=== PATIENT | female | born 1965 | race Caucasian/White ===

== ENCOUNTER → 2020-04-04 08:08 | Outpatient (BNVA) | payer OTHER, SELFPAY | PROVIDERS: Family Provider Family Medicine; Visit Provider Specialist | DX: G25.0 Essential tremor (principal) | CPT/HCPCS: 99213 ==

== ENCOUNTER 2020-04-07 19:01 | Emergency (ER) | payer OTHER, SELFPAY ==
[2020-04-07 19:06] VITALS: BP 179/98; PULSE 73; RESP 16; TEMP 36.4; O2SAT 100; BMI 30.9
--- NOTE | 2020-04-07 19:23 | CTR_ITS ---
PROCEDURE INFORMATION: Exam: CT Abdomen And Pelvis With Contrast Exam date and time: 04/07/2020 7:34 PM Age: 55 years old Clinical indication: Abdominal pain; Localized; Right lower quadrant (rlq); Additional info: Rlq pain TECHNIQUE: Imaging protocol: Computed tomography of the abdomen and pelvis with intravenous contrast. Radiation optimization: All CT scans at this facility use at least one of these dose optimization techniques: automated exposure control; mA and/or kV adjustment per patient size (includes targeted exams where dose is matched to clinical indication); or iterative reconstruction. Contrast material: OMNI 300; Contrast volume: 95 ml; Contrast route: INTRAVENOUS (IV); COMPARISON: CT Abdomen/Pelvis Renal [id number] 05/01/2017 4:34 PM RADIATION DOSE METRICS: Total DLP (mGy-cm): 777 FINDINGS: Liver: Normal. No mass. Gallbladder and bile ducts: Several gallstones are present in the gallbladder. No biliary ductal dilatation. Pancreas: Normal. No ductal dilation. Spleen: Normal. No splenomegaly. Adrenals: Normal. No mass. Kidneys and ureters: Tiny renal stones are seen in the right kidney. The left kidney appears normal. A 6 mm renal stone is present in the proximal right ureter. Mild to moderate right hydronephrosis is noted. Stomach and bowel: Unremarkable. No obstruction. No mucosal thickening. Appendix: The appendix is normal. Intraperitoneal space: Unremarkable. No free air. No significant fluid collection. Vasculature: Unremarkable. No abdominal aortic aneurysm. Lymph nodes: Unremarkable. No enlarged lymph nodes. Urinary bladder: Unremarkable as visualized. Reproductive: Unremarkable as visualized. Bones/joints: Unremarkable. No acute fracture. Soft tissues: Unremarkable. CT/CT abdomen pelvis w con* [id number] IMPRESSION: 1. Proximal right ureter 6 mm renal stone and mild to moderate right hydronephrosis. 2. Cholelithiasis. 3. Normal appendix. Radiation Dose CTDIVOL = (mGy): DLP = 777 (mGy-cm)
--- NOTE | 2020-04-07 19:26 | W.ED.ABDPA2 ---
HPI - Abdominal Pain General: Chief Complaint: Abdominal Pain Stated Complaint: abd pain Time Seen by Provider: 04/07/20 19:17 Source: patient Mode of arrival: ambulatory Limitations: no limitations History of Present Illness: MD elicited complaint: abdominal pain Pertinent past history: kidney stones Onset (ago): hour(s) (8) Pain Consistency: constant Location: RLQ Severity: severe Quality: stabbing Radiation: none Exacerbating factors: nothing Relieving factors: nothing Associated Symptoms: Denies anorexia, belching, bloating, change in bowel habits, change in stool character, chills, coffee ground emesis, constipation, GI cramping, diarrhea, dyspepsia, dysuria, excessive flatus, fever(s), heartburn, hematochezia, hematuria, hematemesis, fecal incontinence, loose stools, melena, nausea, poor appetite, syncope, vomiting and other Review of Systems General: Reports: 10 or more systems reviewed and unremarkable except in HPI and below Const: Denies: fever(s) or chills Eyes: Denies: change in vision or blurry vision ENMT: Denies: throat pain, enlarged tonsils, odynophagia, hoarseness, mouth pain or swelling of lips/tongue Card: Denies: syncope Resp: Denies: dyspnea, productive cough or non-productive cough GI: Denies: nausea, vomiting, hematemesis, coffee ground emesis, heartburn, diarrhea, constipation, bloating, GI cramping, belching, excessive flatus, fecal incontinence, change in bowel habits, change in stool character, hematochezia, melena or other : Denies: dysuria or hematuria Musc: Denies: neck pain, back pain or extremity swelling Skin/Breast: Denies: rash, pruritus or erythema Neuro: Denies: headache(s), numbness in extremities or weakness in extremities Endo: Denies: polyuria, polydipsia or tired all the time PFSH ED PFSH: Medical History (Reviewed 04/07/20 @ 19:27 by Erin Marrero MD, [facility] [place]) Essential tremor Family History (Reviewed 04/07/20 @ 19:27 by Erin Marrero MD, [facility] [place]) Grandfather No problems noted. Mother Hypertension Brother Morquio A syndrome Father Essential tremor Other Cancer Social History (Reviewed 04/07/20 @ 19:27 by Erin Marrero MD, [facility] [place]) Smoking and tobacco status: never smoked History of recent travel: No Physical Exam Const: COMMON NORMALS: average body habitus, patient oriented x3, no limitations, healthy appearing, alert and well nourished GENERAL APPEARANCE: in distress HENMT: COMMON NORMALS: normocephalic, atraumatic and moist oral mucous membranes HEAD & SCALP: normocephalic and atraumatic Neck/C-Spine: COMMON NORMALS: full ROM, supple, no meningeal signs, no JVD and No carotid bruits Resp: COMMON NORMALS: normal respiratory effort, No retractions, No use of accessory muscles, clear to auscultation bilaterally and percussion normal AUSCULTATION: clear to auscultation bilaterally PERCUSSION: percussion normal Cardio: COMMON NORMALS: no JVD, regular rate, regular rhythm, S1 normal heart sound present, S2 normal heart sound present, No gallops present (Cardio), No clicks present (Cardio), No murmurs present (Cardio), No rub (Cardio) and Peripheral pulses 2+ throughout RATE: regular rate RHYTHM: regular rhythm HEART SOUNDS: S1 normal heart sound present and S2 normal heart sound present PERIPHERAL PULSES: Peripheral pulses 2+ throughout GI: COMMON NORMALS: Normal to inspection, nondistended, normoactive bowel sounds present, Soft to palpation, non-tender, No hepatosplenomegaly present, no masses and no bruits PALPATION: Yes Soft to palpation and Yes No hepatosplenomegaly present : BLADDER/KIDNEY EXAM: Yes CVA tenderness on the right Back/Pelvis: GENERAL BACK: Yes CVA tenderness Extremity: COMMON NORMALS: normal to inspection, full ROM, capillary refill normal, no calf tenderness and no pedal edema Neuro: COMMON NORMALS: patient oriented x3 SENSORIUM/ORIENTATION: Yes alert MENINGEAL SIGNS: Yes no meningeal signs Skin: COMMON NORMALS: no rashes or lesions noted, no wounds, turgor normal, no jaundice, no petechiae and no mottling GENERAL SKIN EXAM: no rashes or lesions noted and turgor normal Course Reevaluation(s): Reevaluation #1: Discussed her lab and imaging findings with her. CT scan findings shows a 6 mm ureteric calculus on the right with mild to moderate hydronephrosis. UA also shows a UTI, and will benefit from antibiotics. We will also talk to the urologist since she has an obstructing stone with a UTI. Pain is still well controlled. Time: 20:50 Consultations: Consultation #1: See Dr. Rosa, urologist. Since pain is well controlled and she has a UTI send her home with a prescription for Antibiotic and pain medicine. She should call his office in the morning for further evaluation and to see if any intervention needs to be done. Time: 21:05 Vital Signs: Vital signs: Vital Signs Temperature 97.5 F L 04/07/20 19:06 Pulse Rate 73 04/07/20 19:06 Respiratory Rate 18 04/07/20 20:22 Blood Pressure 179/98 04/07/20 19:06 Pulse Oximetry 100 04/07/20 19:06 MDM - Abdominal Pain MDM Narrative: Medical decision making narrative: 55-year-old female patient who presents with a 6 mm right ureteric calculus with mild to moderate hydronephrosis. She also has a urinary tract infection. Pain was well controlled in the emergency department with intravenous pain medications. She is discharged home with oral pain medicine and oral antibiotics. She was given a dose of antibiotic in the emergency department. She is to call the office of the urologist, Dr. Rosa, who is she is seen in the past in the morning for further evaluation and management. Medical Records: Attestation: I reviewed the patient's medical records. Lab Data: Attestation: I reviewed the patient's lab results. Labs: Lab Results 04/07/20 04/07/20 04/07/20 Range/Units 19:30 19:30 19:30 WBC 9.1 (4.0-10.0) 10^3/ uL RBC 4.30 (4.1-5.3) 10^6/u L Hgb 14.0 (11.5-15.3) g/dL Hct 41.3 (37.0-47.0) % MCV 96.0 (81-99) fL MCH 32.6 (28.0-34.0) pg MCHC 33.9 (30.0-36.0) g/dL RDW 13.4 (12.1-15.1) % Plt Count 264 (130-400) 10^3/c mm MPV 11.1 H (7.4-10.4) fL Neut % (Auto) 71.0 % Lymph % (Auto) 19.0 % Prairie % (Auto) 6.9 % Eos % (Auto) 1.9 % Baso % (Auto) 1.0 % Neut # (Auto) 6.47 (1.8-7.7) 10^3/u L Lymph # (Auto) 1.7 (0.8-4.8) 10^3/u L Prairie # (Auto) 0.6 (0.2-0.9) 10^3/u L Eos # (Auto) 0.2 (0.0-0.8) 10^3/u L Baso # (Auto) 0.1 (0.0-0.1) 10^3/u L Nucleated RBC % (a uto) 0 % Nucleated RBCs # 0.0 /100WBC Sodium 136 (136-145) mmol/L Potassium 3.9 (3.5-5.1) mmol/L Chloride 102 (98-107) mmol/L Carbon Dioxide 20 L (22-29) mmol/L Anion Gap 17.9 (5-19) BUN 15 (6-20) mg/dL Creatinine 1.0 H (0.5-0.9) mg/dL GFR Calculation 57.8 L (90-130) mL/min Glucose 149 H (65-115) mg/dL Calculated Osmolal ity 286 (285-295) mOsm/k g Calcium 9.3 (8.5-10.5) mg/dL Total Bilirubin 0.4 (0.15-1.2) mg/dL AST 19 (0-32) U/L ALT 13 (0-33) U/L Alkaline Phosphata se 60 (35-105) IU/L Total Protein 7.5 (6.6-8.7) g/dL Albumin 4.5 (3.5-5.2) g/dL Globulin 3.0 (1.3-4.6) g/dL Lipase 39 (13-60) U/L HCG, Qual Negative (Negative) Urine Color (Yellow) Urine Appearance (CLEAR) Urine pH (5-7) Ur Specific Gravit y (1.005-1.030) Urine Protein (Negative) Urine Glucose (UA) (Normal) Urine Ketones (Negative) Urine Blood (Negative) Urine Nitrate (Negative) Urine Bilirubin (Negative) Urine Urobilinogen (Negative) mg/dL Ur Leukocyte Cathy ase (Negative) Urine RBC (0-2) /hpf Urine WBC (0-5) /hpf Ur Squamous Epith Cells (0-5) /hpf Amorphous Sediment Urine Bacteria (NONE) /hpf 04/07/20 Range/Units 19:30 WBC (4.0-10.0) 10^3/ uL RBC (4.1-5.3) 10^6/u L Hgb (11.5-15.3) g/dL Hct (37.0-47.0) % MCV (81-99) fL MCH (28.0-34.0) pg MCHC (30.0-36.0) g/dL RDW (12.1-15.1) % Plt Count (130-400) 10^3/c mm MPV (7.4-10.4) fL Neut % (Auto) % Lymph % (Auto) % Prairie % (Auto) % Eos % (Auto) % Baso % (Auto) % Neut # (Auto) (1.8-7.7) 10^3/u L Lymph # (Auto) (0.8-4.8) 10^3/u L Prairie # (Auto) (0.2-0.9) 10^3/u L Eos # (Auto) (0.0-0.8) 10^3/u L Baso # (Auto) (0.0-0.1) 10^3/u L Nucleated RBC % (a uto) % Nucleated RBCs # /100WBC Sodium (136-145) mmol/L Potassium (3.5-5.1) mmol/L Chloride (98-107) mmol/L Carbon Dioxide (22-29) mmol/L Anion Gap (5-19) BUN (6-20) mg/dL Creatinine (0.5-0.9) mg/dL GFR Calculation (90-130) mL/min Glucose (65-115) mg/dL Calculated Osmolal ity (285-295) mOsm/k g Calcium (8.5-10.5) mg/dL Total Bilirubin (0.15-1.2) mg/dL AST (0-32) U/L ALT (0-33) U/L Alkaline Phosphata se (35-105) IU/L Total Protein (6.6-8.7) g/dL Albumin (3.5-5.2) g/dL Globulin (1.3-4.6) g/dL Lipase (13-60) U/L HCG, Qual (Negative) Urine Color Yellow (Yellow) Urine Appearance Clear (CLEAR) Urine pH 5 (5-7) Ur Specific Gravit y 1.025 (1.005-1.030) Urine Protein Neg (Negative) Urine Glucose (UA) Norm (Normal) Urine Ketones 1+ H (Negative) Urine Blood Neg (Negative) Urine Nitrate Negative (Negative) Urine Bilirubin 1+ H (Negative) Urine Urobilinogen Norm (Negative) mg/dL Ur Leukocyte Cathy ase 1+ H (Negative) Urine RBC 0-4 H (0-2) /hpf Urine WBC 10-15 H (0-5) /hpf Ur Squamous Epith Cells 0-4 H (0-5) /hpf Amorphous Sediment Not Reportable Urine Bacteria 1+ H (NONE) /hpf Imaging Data ^: CT Abd/Pel: Radiologist's impression: [place] [address] CT Scan Report Signed Patient: Akila Gooden #: [id number] : 1965Acct#:[id number] Age/Sex: 55 / FADM Date: 04/07/20 Loc: ERRoom/Bed: Attending Dr: Ordering Provider/Ordering MD: Erin Marrero MD, [facility] [place] Date of Service: 04/07/20 Procedure(s): CT abdomen pelvis w con* [id number] Accession Number(s): [id number] Report Number: [id number] PROCEDURE INFORMATION: Exam: CT Abdomen And Pelvis With Contrast Exam date and time: 04/07/2020 7:34 PM Age: 55 years old Clinical indication: Abdominal pain; Localized; Right lower quadrant (rlq); Additional info: Rlq pain TECHNIQUE: Imaging protocol: Computed tomography of the abdomen and pelvis with intravenous contrast. Radiation optimization: All CT scans at this facility use at least one of these dose optimization techniques: automated exposure control; mA and/or kV adjustment per patient size (includes targeted exams where dose is matched to clinical indication); or iterative reconstruction. Contrast material: OMNI 300; Contrast volume: 95 ml; Contrast route: INTRAVENOUS (IV); COMPARISON: CT Abdomen/Pelvis Renal [id number] 05/01/2017 4:34 PM RADIATION DOSE METRICS: Total DLP (mGy-cm): 777 FINDINGS: Liver: Normal. No mass. Gallbladder and bile ducts: Several gallstones are present in the gallbladder. No biliary ductal dilatation. Pancreas: Normal. No ductal dilation. Spleen: Normal. No splenomegaly. Adrenals: Normal. No mass. Kidneys and ureters: Tiny renal stones are seen in the right kidney. The left kidney appears normal. A 6 mm renal stone is present in the proximal right ureter. Mild to moderate right hydronephrosis is noted. Stomach and bowel: Unremarkable. No obstruction. No mucosal thickening. Appendix: The appendix is normal. Intraperitoneal space: Unremarkable. No free air. No significant fluid collection. Vasculature: Unremarkable. No abdominal aortic aneurysm. Lymph nodes: Unremarkable. No enlarged lymph nodes. Urinary bladder: Unremarkable as visualized. Reproductive: Unremarkable as visualized. Bones/joints: Unremarkable. No acute fracture. Soft tissues: Unremarkable. CT/CT abdomen pelvis w con* [id number] IMPRESSION: 1. Proximal right ureter 6 mm renal stone and mild to moderate right hydronephrosis. 2. Cholelithiasis. 3. Normal appendix. Radiation Dose CTDIVOL = (mGy): DLP = 777 (mGy-cm) Dictated By:Fran Ware MD Signed By:Fran Ware MDSigned Date/Time:04/07/202026 DD/ 24 Discharge Plan Discharge Patient Disposition: Home Clinical Impression: Calculus of proximal right ureter Urinary tract infection Qualifiers: Urinary tract infection type: acute pyelonephritis Qualified Code(s): N10 - Acute pyelonephritis Condition: Stable Prescriptions: New levofloxacin 500 mg tablet 500 mg PO DAILY 10 Days Qty: 10 RF: 0 Mineral 5-325 mg tablet 1 tab PO Q8H PRN (Reason: Kidney stone) Qty: 20 RF: 0 Flomax 0.4 mg capsule 0.4 mg PO DAILY Qty: 30 RF: 0 Continued esomeprazole magnesium [Nexium 24HR] 20 mg capsule,delayed release(DR/EC) 20 mg PO DAILY RF: 0 medroxyprogesterone 150 mg/mL suspension See Rx Instructions IM .COMPLEX RF: 0 diphenhydramine-acetaminophen [Tylenol PM Extra Strength] 25-500 mg tablet 1 tab PO Q8H PRN (Reason: Pain) RF: 0 propranolol 60 mg tablet 60 mg PO TID Qty: 90 RF: 11 cetirizine-pseudoephedrine 5-120 mg Tablet Extended Release 12 Hr 1 tab PO BID RF: 0 primidone 50 mg tablet 100 mg PO BID RF: 0 Discharge Orders: Discharge Order (Routine); Ordered 04/07/20 Ordered By: Erin Marrero Referrals: Lara Lloyd MD [Primary Care Provider] - 1-3 days David Rosa MD [Physician] - 04/08/20 Discharge Diet: Usual diet Discharge Activity: Increase activity as tolerated Patient Instructions: Kidney Stones (ED), Urinary Tract Infection - Women Activity Restrictions/Additional Instructions: Return for any new or worsening symptoms. Take the medications as prescribed. Drink plenty of fluids to keep well-hydrated. Call the office of Dr. Rosa tomorrow morning for further evaluation and follow-up. Coding Level of Care Code ED Final Tester for Chg Fwd Exam Comprehensive
[2020-04-07 19:34] LABS: Basophils # 0.1 10^3/uL (0.0-0.1); Eosinophils # 0.2 10^3/uL (0.0-0.8); Eosinophils % 1.9 %; Hematocrit 41.3 % (37.0-47.0); Lymphocytes # 1.7 10^3/uL (0.8-4.8); Mean Corpuscular HGB Conc 33.9 g/dL (30.0-36.0); Mean Corpuscular Hemoglobin 32.6 pg (28.0-34.0); Mean Platelet Volume 11.1 fL (7.4-10.4); Monocytes # 0.6 10^3/uL (0.2-0.9); Monocytes % 6.9 %; Neutrophils # 6.47 10^3/uL (1.8-7.7); Nucleated Red Blood Cells % 0 %; Platelet Count 264 10^3/cmm (130-400); Red Cell Distribution Width 13.4 % (12.1-15.1); White Blood Count 9.1 10^3/uL (4.0-10.0)
[2020-04-07 19:38] VITALS: RESP 20
[2020-04-07] MEDS: morphine 4 mg/mL SDV 1 mL IVP ×2 (19:38→20:22)
[2020-04-07] MEDS: ondansetron 2 mg/ML SDV 2 mL 4 MG IVP (19:39)
[2020-04-07 19:52] LABS: HCG, Serum Qual Negative (Negative)
[2020-04-07] MEDS: iohexol 300 mg/mL 100 mL Btl IV (19:55)
[2020-04-07 19:59] LABS: Alanine Aminotransferase 13 U/L (0-33); Albumin Level 4.5 g/dL (3.5-5.2); Alkaline Phosphatase 60 IU/L (35-105); Anion Gap 17.9 (5-19); Aspartate Amino Transferase 19 U/L (0-32); Blood Urea Nitrogen 15 mg/dL (6-20); Calcium 9.3 mg/dL (8.5-10.5); Carbon Dioxide 20 mmol/L (22-29); Chloride 102 mmol/L (98-107); Glomerular Filtration Rate 57.8 mL/min (90-130); Glucose 149 mg/dL (65-115); Lipase 39 U/L (13-60); Osmolality Calculated 286 mOsm/kg (285-295); Potassium 3.9 mmol/L (3.5-5.1); Sodium 136 mmol/L (136-145); Total Bilirubin 0.4 mg/dL (0.15-1.2); Total Protein 7.5 g/dL (6.6-8.7)
[2020-04-07 20:16] LABS: Add Urine Microscopic? YES; Bilirubin Urine 1+ (Negative); Blood Urine Neg (Negative); Glucose Urine UA Norm (Normal); Ketones Urine 1+ (Negative); Leukocyte Esterase Urine 1+ (Negative); Nitrate Urine Negative (Negative); Protein Urine Neg (Negative); Specific Gravity, Urine 1.025 (1.005-1.030); Urine Appearance Clear (CLEAR); Urine Color Yellow (Yellow); Urobilinogen Urine Norm (Negative); pH Urine 5 (5-7)
[2020-04-07 20:22] VITALS: RESP 18
[2020-04-07] MEDS: metoclopramide 5 mg/mL SDV 2 mL 10 MG IVP (20:27)
[2020-04-07 20:31] LABS: Bacteria Urine 1+ /hpf; RBC Urine 0-4 /hpf (0-2); Squamous Epithelial Cell Urine 0-4 /hpf (0-5)
[2020-04-07] MEDS: levofloxacin-dextrose 5 % 500 MG/100 ML PREMIX 100 MG IV (21:29)
[2020-04-07] MEDS: HYDROcodone-acetaminophen 5-325 mg Tablet 4 TAB PO (21:44)
[2020-04-07] MEDS: tamsulosin 0.4 mg Capsule PO (21:45)
[2020-04-07] MEDS: promethazine 25 mg Tablet PO (21:45)
[2020-04-07 22:26] VITALS: BP 144/100; PULSE 85; RESP 18; O2SAT 98
== END 2020-04-07 22:28 | disposition home or self-care (01) ==
PROVIDERS: Emergency Medicine; Emergency Provider Family Medicine; PCP Family Medicine
DX: N20.1 Calculus of ureter (principal)
CPT/HCPCS: 12345; 74177; 80053; 81001; 83690; 84703; 85025; 96365; 96375; 96376; 99282; 99284; J1956; J2270; J2405; J2765; Q0169; Q9967

== ENCOUNTER 2020-04-08 08:43 | Outpatient (CLI) | payer OTHER, SELFPAY ==
--- NOTE | 2020-04-08 09:00 | XR_ITS ---
WS: [id number] KUB, 04/08/2020 Clinical Data: STONE Comparison: KUB, 12/15/2018. Findings: There is contrast material within the right kidney which shows renal pelvic dilatation in proximal r ight ureteral dilatation down to the level of the right fifth transverse process. There is a obstruct ing stone at this level. There is minimal contrast in the left kidney and left ureter. Bladder contra st is seen. There is vicarious contrast in the gallbladder with 2 gallstones. XR/XR KUB [id number] Impression: 1. Obstructing right mid ureteral calculus. 2. Gallstones.
== END 2020-04-08 08:44 | disposition home or self-care (01) ==
LOC: RAD 08:46
PROVIDERS: PCP Family Medicine; Visit Provider Urology
DX: N20.1 Calculus of ureter (principal); K80.80 Other cholelithiasis without obstruction
CPT/HCPCS: 74018; 87635

== ENCOUNTER 2020-04-13 06:46 | Outpatient (CLI) | payer OTHER, SELFPAY ==
--- NOTE | 2020-04-13 07:15 | XRR_ITS ---
PROCEDURE INFORMATION: Exam: XR Abdomen, 1 View Exam date and time: 04/13/2020 7:10 AM Age: 55 years old Clinical indication: Pain and condition or disease; Other: Stones; Abdominal pain; Generalized; Patient HX: Rlq pain TECHNIQUE: Imaging protocol: XR of the abdomen. Views: Frontal supine view of the abdomen. 1 View. COMPARISON: CR XR KUB [id number] 04/08/2020 8:54 AM FINDINGS: Gastrointestinal tract: Nor prominent stool and mild dilatation of the splenic flexure. Bones/joints: Mild degenerative change . Other findings: Punctate calcifications overlying the right paraspinous region and pelvis, in the setting of documented urolithiasis. Cholelithiasis. XR/XR KUB [id number] IMPRESSION: 1. Punctate calcifications overlying the right paraspinous region and pelvis, in the setting of documented urolithiasis. 2. Cholelithiasis.
== END 2020-04-13 06:47 | disposition home or self-care (01) ==
LOC: RAD 06:54
PROVIDERS: PCP Family Medicine; Visit Provider Urology
DX: N20.1 Calculus of ureter (principal); K80.20 Calculus of gallbladder without cholecystitis without obstruction
CPT/HCPCS: 74018; 81001

== ENCOUNTER 2020-04-14 10:25 | Day surgery (SDC) | payer OTHER, SELFPAY ==
[2020-04-13 13:00] VITALS: BMI 30.9
[2020-04-14] VITALS (9 sets, daily range): BP systolic 115–160; BP diastolic 63–107; PULSE 55–78; RESP 15–19; TEMP 36.1–36.2; O2SAT 94–100
--- NOTE | 2020-04-14 | SCC_ITS ---
Procedure Done: 1. Cystoscopy, RIGHT ureteroscopy, laser lithotripsy, stent 2. Right retrograde ureteropyelogram 61.8 seconds of fluoroscopic guidance, for a cumulative dose of 12.41 mGy, was provided to Dr. Rosa by the radiology department. C-arm images of the abdomen were saved for the patient's permanent record. [facility]
--- NOTE | 2020-04-14 10:34 | SC_ITS ---
WS: [id number] C-arm fluoroscopy view of the right abdomen, 04/14/2020 Clinical Data: Right ureteroscopy Comparison: KUB, 04/13/2020. Findings: A right ureteral stent has been inserted in curls in the right renal pelvis. There are 2 stones seen in the region of the gallbladder. Right renal pelves are modestly dilated. SC/C-arm FL for Urology Impression: Satisfactory insertion of right ureteral stent.
[2020-04-14] MEDS: sodium chloride 0.9% 1,000 ML 30 ML IV (11:16)
--- NOTE | 2020-04-14 11:18 | ANES.PREANE2 ---
Pre-Anesthetic Assessment Pre-Anesthetic Assessment: Height/Weight: Height 1.57 m Weight 76.657 kg Temp Pulse Resp BP Pulse Ox 97.2 F L 75 18 148/107 98 04/14/20 11:06 04/14/20 11:06 04/14/20 11:06 04/14/20 11:06 04/14/20 11:06 Preop Diagnosis: Refractory right mid ureteral stone Proposed Procedure: Operation Date: 04/14/20 12:00 Proposed Procedures p Cystoscopy 20607 40827 N20.1(Not Applicable) - David Rosa MD s Retrograde Pyelogram(Right) - MD ladan Earl Ureteroscopy(Right) - MD ladan Earl Laser Lithotripsy(Not Applicable) - David Rosa MD s Ureteral Stent Placement(Not Applicable) - David Rosa MD Familial anesthetic complications: ponv with a pilonidal cyst surgery Was Beta Mis taken within 24 hours: N/A Last intake: Intake Last Liquid Date 04/13/20 Last Liquid Time 19:00 Last Solid Date 04/13/20 Last Solid Time 10:00 Social: Social History: No alcohol and No tobacco Exam: Pre-Anes Outpt Exam: alert, oriented x 3, clear to auscultation bilaterally and regular rate & rhythm Airway: Cervical ROM: WNL MP: 2 Dentition: Full GI: GI: GERD Neuropsych: Comments: essential tremor - takes propanolol and primodine Anesthetic Plan: ASA status: 1 Anesthesia: General Risk of > 500 ml blood loss (7ml/kg in children): No Meds/Allergies Current Medications: Current Medications Generic Name Dose Route Start Last Admin Trade Name Freq PRN Reason Stop Dose Admin Sodium Chloride 1,000 mls @ 30 ml s/hr 04/14/20 10:45 04/14/20 11:16 Sodium Chloride 0.9% IV 04/15/20 10:44 30 mls/hr .Q24H DENISE Administration PFSH Anesthesia PFSH: Medical History Essential tremor History of pilonidal cyst Surgical History History of tonsillectomy Family History Grandfather No problems noted. Mother Hypertension Brother Morquio A syndrome Father Essential tremor Other Cancer Social History Smoking and tobacco status: never smoked Alcohol intake: never Adopted: No Caregiver/support person: No Lives independently: No Household members: spouse Marital status: Current occupational status: employed History of recent travel: No Data Anesthesia Cardiac Studies: No Data to Display
--- NOTE | 2020-04-14 12:10 | P.HPUD_ITS ---
Surgery/Procedure H&P Update DATE OF PROCEDURE: April 14, 2020 DATE H&P PERFORMED: 04/14/20 H&P UPDATE INFORMATION: I have reviewed H&P completed within last 30 days, I have examined patient prior to procedure, No changes to prior documentation and H&P is in [facility] EMR on date indicated CHANGES TO PREVIOUS DOCUMENTATION: No change from previous visit in clinic. Not passed the stone. Still having pain. PREOP DIAGNOSIS: Refractory right mid ureteral stone PLANNED PROCEDURE: Operation Date: 04/14/20 12:00 Proposed Procedures p Cystoscopy 28264 07471 N20.1(Not Applicable) - David Rosa MD s Retrograde Pyelogram(Right) - MD ladan Earl Ureteroscopy(Right) - MD ladan Earl Laser Lithotripsy(Not Applicable) - MD ladan Earl Ureteral Stent Placement(Not Applicable) - David Rosa MD
--- NOTE | 2020-04-14 12:13 | P.OP_ITS ---
Operative Report Date of procedure: April 14, 2020 Pre-op Diagnosis: Refractory right mid ureteral stone Post-op diagnosis: same Procedure Done: 1. Cystoscopy, RIGHT ureteroscopy, laser lithotripsy, stent 2. Right retrograde ureteropyelogram Implants: Right ureteral stent Pathology: Stone fragments Surgeon: Moe Anesthesia: General Estimated blood loss: Minimal Urine output: Not measured Complications: None Findings: Stone in the expected position. Completely fragmented with laser lithotripsy Significant josue-stone ureteral edema Required postoperative stenting. Condition: stable Disposition: PACU Brief History: Akila is a very pleasant 55-year-old white female recently diagnosed with obstructing right mid ureteral stone. Severe pain at the time but was well-controlled with oral narcotics and she elected initially a conservative trial in hopes of spontaneous passage. The stone failed to pass and she continued to have significant symptoms and ultimately chose to proceed with treatment. Based on the josue-stone ureteral edema it was decided to proceed with endoscopy as opposed to ESWL. Procedure: After routine preoperative evaluation examination and obtaining of informed consent she was taken to the operating suite on 04/14/2020 where general anesthesia was administered without difficulty after appropriate timeout was performed, SCDs confirmed to be functioning, preoperative antibiotics administered, beta-jimmy protocol confirmed. Prepped and draped in usual sterile fashion in dorsolithotomy position pain careful attention to avoiding pressure points. 21 [place] Islander cystoscope with 30 degree lens introduced into urethral meatus and advanced into the bladder under videoscopy. Bladder was systematically e xamined. No stone was identified. Cone-tipped catheter intubate into the right ureteral orifice for right retrograde ureteropyelogram: Contrast was injected and showed a normal ureter course and caliber up until the filling defect consistent with the stone seen on previous imaging. Contrast did flow proximally and demonstrated a dilated ureter. There were 2 areas in the ureter distal to the stone that showed narrowing. Did not appear to be a filling defect but rather just intrinsic narrowing of the ureter. No significant dilation of the ureter proximal to that point only above the stone. Flexible tip guidewire was then passed up the right ureter. But did not easily pass the stone. An open-ended ureteral catheter was then placed over the guidewire to just below the level of the stone and this facilitated passage of the guidewire passed the stone. A second guidewire this time a zip wire was utilized to use as a working wire but could not be easily passed beyond the stone. The distal ureter was then dilated with a 15 [place] Islander 4 cm balloon and the more distal of the 2 narrowed areas required about 14 crystal of pressure to dilate completely. The scope was then passed into the ureter and up to the secondary of narrowing which was confirmed to truly be an intrinsic narrowing requiring dilation as well. 15 [place]er by 10 cm balloon was then utilized to dilate the more proximal of the narrowed areas and it required almost the same amount of pressure at 14 crystal to completely dilate. The scope was then passed next to the safety guidewire and the stone was encountered in the expected position. There was significant ureteral inflammatory changes around the stone with some evidence of impaction. A 365 ?m homing laser fiber was then utilized to fragment the stone into small particles and mostly sand. A couple larger fragments migrated to the proximal ureter and these were treated with combination of fragmentation with lithotripsy as well as a couple of the larger fragments withdrawn into the more distal ureter where they could then be easily fragmented. No stone fragments could be identified on ureteroscopy or fluoroscopy having migrated proximal to the UPJ. 3 [place]er grasping forceps were utilized to remove some of the small fragments and then a parachute basket was used to remove multiple small fragments and sand. Final inspection confirmed the inflamed areas at the 2 dilation sites as well as the predominant inflammatory changes at the impaction site. Ureteral integrity was confirmed. The cystoscope was then backloaded over the guidewire and a 6 [place] Islander by 26 cm double-pigtail stent without string was passed without difficulty over the guidewire through the cystoscope into appropriate position as confirmed via fluoroscopy and cystoscopy. The bladder was then drained. A few small stone fragments were washed free from the bladder. She tolerated procedure well without complications and was awakened in the operating room and returned to recovery in stable condition. PLANS: 1. Expected discharge from outpatient surgery today with follow-up in 2 weeks. 2. I expect that she will require the stent for at least 3 weeks for appropriate healing. We will obtain a KUB on follow-up visit. 3. Xlgu-rmi-dsofzoj Azo-Standard 4. Prescription for [place] 5/325 #20, 1 every 8 hours as needed for pain prescribed
[2020-04-14] MEDS: levofloxacin-dextrose 5 % 500 MG/100 ML PREMIX 100 MG IV (12:16)
[2020-04-14] MEDS: iohexol 300 mg/mL 50 mL Btl (OR ONLY) XX (13:30)
[2020-04-14] MEDS: ondansetron 2 mg/ML SDV 2 mL 4 MG IVP ×2 (14:07→14:35)
--- NOTE | 2020-04-14 15:10 | ANE.PACU2 ---
Inpatient post-anesthesia follow up: Airway intact: Yes Vital signs: Temperature 97 F Pulse Rate 76 Respiratory Rate 18 Blood Pressure 122/78 Pulse Oximetry 99 Oxygen Delivery Me thod Room Air Oxygen Flow Rate 8 Fraction of Inspir ed Oxygen Hydration adequate: Yes Nausea and vomiting: No Pain level: 1 Mental status: Baseline
[2020-04-21 12:51] LABS: Stone Source RIGHT URETER
== END 2020-04-14 15:15 | disposition home or self-care (01) ==
PROVIDERS: PCP Family Medicine; Visit Provider Urology
PROC: 0TJB8ZZ Inspection of Bladder, Via Natural or Artificial Opening Endoscopic (ICD-10-PCS; CPT 52000; principal; 2020-04-14 12:00)
PROC: (CPT 74420; 2020-04-14 12:00)
PROC: 0TJ98ZZ Inspection of Ureter, Via Natural or Artificial Opening Endoscopic (ICD-10-PCS; CPT 52351; 2020-04-14 12:00)
PROC: (CPT 52356; 2020-04-14 12:00)
PROC: (CPT 50605; 2020-04-14 12:00)
DX: N20.1 Calculus of ureter (principal); K21.9 Gastro-esophageal reflux disease without esophagitis
CPT/HCPCS: 52356; 12345; 76000; 82365; 88300; C1725; C2625; J1956; J2405; J2704; J2710; J3010; J3490; J7030

== ENCOUNTER 2020-04-29 06:58 | Outpatient (CLI) | payer OTHER, SELFPAY ==
--- NOTE | 2020-04-29 07:06 | XR_ITS ---
WS: [id number] KUB, 04/29/2020 Clinical Data: HYDRONEPHROSIS Comparison: KUB, 04/13/2020. Findings: There is a right ureteral catheter extending from the bladder to the right renal pelvis. 2 gallstones are noted in the gallbladder. There is a moderate amount of fecal material throughout the colon. XR/XR KUB [id number] Impression: Satisfactory position right ureteral stent.
== END 2020-04-29 06:59 | disposition home or self-care (01) ==
LOC: RAD 07:04
PROVIDERS: PCP Family Medicine; Visit Provider Urology
DX: N20.0 Calculus of kidney (principal); Z96.0 Presence of urogenital implants
CPT/HCPCS: 74018; 81001

== ENCOUNTER 2020-08-29 07:12 | Outpatient (CLI) | payer OTHER, SELFPAY ==
--- NOTE | 2020-08-29 07:28 | XR_ITS ---
WS: [id number] ABDOMEN: SUPINE FILM HISTORY: hydronephrosis COMPARISON: 04/29/2020 Normal bowel gas pattern. Calcifications RIGHT upper quadrant from gallstones. Right kidney: No renal or ureteral stone identified. Removal of the RIGHT ureteral double pigtail porfirio nt since the prior study. Left kidney: No renal or ureteral stone identified. XR/XR KUB [id number] IMPRESSION: No renal or ureteral calcifications.
== END 2020-08-29 07:13 | disposition home or self-care (01) ==
PROVIDERS: PCP Family Medicine; Visit Provider Urology
DX: N13.30 Unspecified hydronephrosis (principal)
CPT/HCPCS: 74018; 81003

== ENCOUNTER 2020-09-05 10:49 | Outpatient (CLI) | payer OTHER, SELFPAY ==
--- NOTE | 2020-09-05 10:00 | XR_ITS ---
WS: [id number] Exam: XR KUB [id number] Date/Time of Exam: 09/05/2020 9:41 AM Reason For Exam: UROLITHIASIS Comparison 08/29/2020. No bowel obstruction or free air. 1 mm calcification superimposing the right renal silhouette that co uld represent a renal stone. 2 calcified gallstones noted. Visualized organ margins are intact. Nonsp ecific small pelvic calcifications. Bony structures are intact. XR/XR KUB [id number] IMPRESSION: 1. 1 mm calcification superimposing the right kidney that could represent a tin y renal calculus. 2. Cholelithiasis. No acute abdominal process.
== END 2020-09-05 10:50 | disposition home or self-care (01) ==
LOC: RAD 10:50
PROVIDERS: PCP Family Medicine; Visit Provider Urology
DX: N20.0 Calculus of kidney (principal); K80.20 Calculus of gallbladder without cholecystitis without obstruction
CPT/HCPCS: 74018; 81003

== ENCOUNTER 2020-09-19 07:28 | Outpatient (CLI) | payer OTHER, SELFPAY ==
--- NOTE | 2020-09-19 08:00 | CT_ITS ---
WS: [id number] CT ABDOMEN PELVIS TECHNIQUE: Noncontrast CT of the abdomen and pelvis with coronal and sagittal reformatted images. CLINICAL INFORMATION: UROLITHIASIS COMPARISON: April 07, 2020 DLP: 1175.[address] scans at [facility] use at least one of these dose optimization techniques: automat ed exposure control; mA and/or kV adjustment per patient size (includes targeted exams where dose is matched to clinical indication); or iterative reconstruction. FINDINGS: Cholelithiasis. Noncontrast liver is normal. Normal noncontrast spleen and GE junction. Adrenal glands are normal. Bilateral renal cortical atrophy. No hydronephrosis. No obstructing renal or ureteral calculi. Tiny 2 mm nonobstructing right calyceal tip calculus. Previously described right obstructing ureteral calculus has resolved. Noncontrast pancreas is normal. Normal caliber abdominal aorta. Mild aortic calcification. Sigmoid di verticuli. No evidence of acute diverticulitis. Tiny fat-containing umbilical hernia. A few hazy grou ndglass opacities in both lobes may be infectious or inflammatory. CT/CT kidney stone [id number] IMPRESSION: 1. Previously described obstructing right ureteral calculus has resolved. 2. No hydronephrosis in either kidney. No obstructing renal or ureteral calcul i. 3. Tiny 2 mm nonobstructing right calyceal tip calculus. 4. Cholelithiasis. 5. No other significant changes from previous.
== END 2020-09-19 07:29 | disposition home or self-care (01) ==
LOC: RAD 07:31
PROVIDERS: PCP Family Medicine; Visit Provider Urology
DX: N20.9 Urinary calculus, unspecified (principal); K80.20 Calculus of gallbladder without cholecystitis without obstruction
CPT/HCPCS: 74176; 81003

== ENCOUNTER → 2021-04-05 07:59 | Outpatient (BNVA) | payer OTHER, SELFPAY | PROVIDERS: PCP Family Medicine; Visit Provider Specialist | DX: G25.0 Essential tremor (principal) | CPT/HCPCS: 99212; 99214 ==

== ENCOUNTER 2021-09-18 14:28 | Outpatient (CLI) | payer OTHER, SELFPAY ==
--- NOTE | 2021-09-18 14:30 | XRR_ITS ---
PROCEDURE INFORMATION: Exam: XR Abdomen Exam date and time: 09/18/2021 2:30 PM Age: 56 years old Clinical indication: Condition or disease; Other: Urolithiasis; Additional info: Urolithiasis, kub @ oz on 09/18/21 @ 2:30. Appt to follow TECHNIQUE: Imaging protocol: XR of the abdomen. Views: Frontal supine view of the abdomen. 1 View. COMPARISON: CR XR KUB [id number] 09/05/2020 11:04 AM FINDINGS: Lungs: Visualized lungs are clear. Gastrointestinal tract: No evidence for bowel obstruction or perforation. Intraperitoneal space: No free intraperitoneal air. Organs: 2 calcifications in the right upper quadrant are stable, likely representing gallstones. No organomegaly. There is a new small calcification in the mid right hemipelvis measuring 1.9 mm, a right ureteral stone cannot be ruled out. Vasculature: Small calcifications in the inferior right hemipelvis are stable, likely representing phleboliths. Bones/joints: Degenerative changes in the spine and hips. XR/XR KUB [id number] IMPRESSION: 1. No evidence for bowel obstruction or perforation. 2. There is a new small calcification in the mid right hemipelvis measuring 1.9 mm, a right ureteral stone cannot be ruled out. These findings can be further evaluated with noncontrasted CT scan of the abdomen and pelvis. 3. 2 calcifications in the right upper quadrant are stable, likely representing gallstones. 4. Incidental/nonacute findings are listed in the report.
== END 2021-09-18 14:29 | disposition home or self-care (01) ==
PROVIDERS: PCP Family Medicine; Visit Provider Urology
DX: N20.9 Urinary calculus, unspecified (principal)
CPT/HCPCS: 74018; 81003

== ENCOUNTER 2021-10-23 08:09 | Outpatient (CLI) | payer OTHER, SELFPAY ==
--- NOTE | 2021-10-23 08:22 | MM_ITS ---
WS: [id number] BILATERAL SCREENING 3D TOMOSYNTHESIS DIGITAL MAMMOGRAM WITH CAD HISTORY: SCREENING COMPARISON: 05/11/2019 and 08/26/2017 and 05/21/2016 Bilateral CC and MLO views submitted. Computer aided detection analyzed. Breast composition: There are scattered areas of fibroglandular density. No suspicious masses, microc alcifications or architectural distortion. Very similar pattern as compared to multiple prior studies . MM/[place] [id number] IMPRESSION: BI-RADS: 1-Negative FOLLOW UP: 1 Year Follow-up
== END 2021-10-23 08:10 | disposition home or self-care (01) ==
LOC: RAD 08:11
PROVIDERS: PCP Family Medicine; Visit Provider Family Medicine
DX: Z12.31 Encounter for screening mammogram for malignant neoplasm of breast (principal)
CPT/HCPCS: 77063; 77067

== ENCOUNTER 2022-03-29 13:53 | Outpatient (CLI) | payer OTHER, SELFPAY ==
[2022-03-29 15:56] LABS: Vitamin B12 302 pg/mL (232-1245)
== END 2022-03-29 13:54 | disposition home or self-care (01) ==
LOC: LAB 13:56
PROVIDERS: PCP Family Medicine; Visit Provider Specialist
DX: R20.0 Anesthesia of skin (principal); R20.2 Paresthesia of skin
CPT/HCPCS: 36415; 82607; 86140

== ENCOUNTER 2022-03-30 06:51 | Outpatient (CLI) | payer OTHER, SELFPAY ==
[2022-03-30 08:00] LABS: Erythrocyte Sedimentation Rate 6 mm/hr (0-15)
[2022-04-02 11:22] LABS: Anti-Double Strand DNA AB 1 IU/mL; Jo-1 Antibody <1.0 NEG AI (<1.0 NEG); SM/RNP Antibodies <1.0 NEG AI (<1.0 NEG); SS-B/LA IGG <1.0 NEG AI (<1.0 NEG); Scleroderma Ab(Scl-70) Ab <1.0 NEG AI (<1.0 NEG); Ss-A/Ro Igg <1.0 NEG AI (<1.0 NEG)
== END 2022-03-30 06:52 | disposition home or self-care (01) ==
LOC: LAB 06:54
PROVIDERS: PCP Family Medicine; Visit Provider Specialist
DX: R20.0 Anesthesia of skin (principal); R20.2 Paresthesia of skin
CPT/HCPCS: 36415; 85651; 86225; 86235

== ENCOUNTER 2023-12-20 18:19 | Emergency (ER) | payer OTHER, SELFPAY ==
[2023-12-20] VITALS (7 sets, daily range): BP systolic 128–172; BP diastolic 73–87; PULSE 62–86; RESP 14–23; TEMP 36.2; O2SAT 97–100; BMI 32.9
--- NOTE | 2023-12-20 18:29 | XRR_ITS ---
PROCEDURE INFORMATION: Exam: XR Chest Exam date and time: 12/20/2023 6:32 PM Age: 58 years old Clinical indication: Angina pectoris; Patient HX: Sudden onset chest pain; No previous cardiac HX; Additional info: Cp TECHNIQUE: Imaging protocol: Radiologic exam of the chest. Views: 1 view. COMPARISON: CR XR KUB [id number] 09/18/2021 2:49 PM FINDINGS: Lungs: Unremarkable. No consolidation. Pleural spaces: Unremarkable. No pleural effusion. No pneumothorax. Heart/Mediastinum: Unremarkable. No cardiomegaly. Bones/joints: Unremarkable. XR/XR chest 1V portable [id number] IMPRESSION: No acute findings.
--- NOTE | 2023-12-20 18:29 | ECG_ITS ---
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 Measurements Intervals [place] Rate: 66 P: 61 AK: 165 QRS: -10 QRSD: 78 T: 20 QT: 391 QTc: 411 Interpretive Statements SINUS RHYTHM VOLTAGE CRITERIA FOR LVH [MEETS CRITERIA IN ONE OF: R(aVL), S(V1), R(V5), R(V5/V6)+S(V1)] Compared to ECG 05/02/2017 09:15:00 ST (T wave) deviation no longer present Electronically Signed On 12-22-2023 20:10:18 CDT by Mally Purdy M.D. [email or web address]
--- NOTE | 2023-12-20 18:35 | ED_ITS ---
HPI - Chest Pain 2 General: Chief Complaint: Chest Pain Stated Complaint: chest pain Time Seen by Provider: 12/20/23 18:28 Source: patient Mode of arrival: ambulatory Limitations: no limitations History of Present Illness: 58-year-old female states that she is go ing home from work started having left- sided chest pain roughly 30 minutes ago. Had some slight dyspnea as well as states since then the pain is resolved it lasted roughly 10 minutes. She denies any wobbly denies any history of heart disease. Denies any worse improving factors Associated symptoms: Deny abdominal pain, dyspnea, fever(s), nausea or vomiting Review of Systems 2 Const: Denies: fever(s), chills, body aches or change in appetite ENMT: Denies: throat pain or dental pain Card: Reports: chest pain Resp: Denies: dyspnea GI: Denies: abdominal pain, nausea, vomiting or diarrhea Musc: Denies: neck pain or back pain Skin/Breast: Denies: rash Neuro: Denies: headache(s) PFSH ED 2 PFSH: Medical History Urolithiasis Renal colic on right side History of pilonidal cyst Hydronephrosis of right kidney Essential tremor Surgical History History of tonsillectomy Family History Grandfather No problems noted. Mother Hypertension Brother Morquio A syndrome Father Essential tremor Other Cancer Social History Smoking and tobacco/nicotine status: never used tobacco/nicotine Alcohol intake: never Substance/Drug Use: never Adopted: No Caregiver/support person: No Lives independently: No Household members: spouse Marital status: Current occupational status: employed Physical Exam 2 Const: COMMON NORMALS: no acute distress, patient oriented x3 and healthy appearing HENMT: COMMON NORMALS: normocephalic and atraumatic HEAD & SCALP: n ormocephalic and atraumatic Neck/C-Spine: COMMON NORMALS: full ROM and supple Chest: COMMONS NORMALS: normal inspection of the chest Resp: COMMON NORMALS: normal respiratory effort, No retractions, No use of accessory muscles and clear to auscultation bilaterally AUSCULTATION: clear to auscultation bilaterally Cardio: COMMON NORMALS: regular rate, regular rhythm and No murmurs present (Cardio) RATE: regular rate RHYTHM: regular rhythm Extremity: COMMON NORMALS: normal to inspection and full ROM Neuro: COMMON NORMALS: patient oriented x3, moves all extremities and no focal motor deficits Psych: COMMON NORMALS: mental status grossly normal, Normal thought process present and cooperative THOUGHT PROCESS: Normal thought process present Skin: COMMON NORMALS: no rashes or lesions noted and no wounds GENERAL SKIN EXAM: no rashes or lesions noted Course 2 Vital Signs: Vital signs: Vital Signs Temperature 97.2 F L 12/20/23 18:23 Pulse Rate 62 12/20/23 21:00 Respiratory Rate 15 12/20/23 21:00 Blood Pressure 139/82 12/20/23 21:00 Pulse Oximetry 99 12/20/23 21:00 Oxygen Delivery Me thod Room Air 12/20/23 21:00 MDM - Chest Pain Medical Decision Making Patient presents for chest pain atypical in nature she has been pain-free here initial repeat troponin is normal she has no signs of ACS or pulmonary embolism or aortic dissection patient stable for discharge follow-up PCP return if worsening. Medical Records I reviewed the patient's medical records. Lab Data I reviewed the patient's lab results. 12/20/23 18:56 12/20/23 18:56 Radiology Impressions Chest X-Ray 12/20/23 18:29 IMPRESSION: No acute findings. Laboratory Results WBC 7.40 10^3/uL (3.29-11.43) 12/20/23 18:56 RBC 4.34 10^6/uL (3.85-5.65) 12/20/23 18:56 Hgb 14.10 g/dL (11.27-16.99) 12/20/23 18:56 Hct 41.8 % (36-47) 12/20/23 18:56 MCV 96.3 fl (85-98) 12/20/23 18:56 MCH 32.5 pg (27-33) 12/20/23 18:56 MCHC 33.7 g/dL (30-55) 12/20/23 18:56 RDW 13.0 % (12.1-15.1) 12/20/23 18:56 Plt Count 260 10^3/cmm (157-399) 12/20/23 18:56 MPV 10.7 fL (7.4-10.4) H 12/20/23 18:56 Neut % (Auto) 39.1 % 12/20/23 18:56 Lymph % (Auto) 47.8 % 12/20/23 18:56 [place] % (Auto) 8.0 % 12/20/23 18:56 Eos % (Auto) 4.2 % 12/20/23 18:56 Baso % (Auto) 0.8 % 12/20/23 18:56 Neut # (Auto) 2.89 10^3/uL (1.8-7.7) 12/20/23 18:56 Lymph # (Auto) 3.5 10^3/uL (0.8-4.8) 12/20/23 18:56 [place] # (Auto) 0.6 10^3/uL (0.2-0.9) 12/20/23 18:56 Eos # (Auto) 0.3 10^3/uL (0.0-0.8) 12/20/23 18:56 Baso # (Auto) 0.1 10^3/uL (0.0-0.1) 12/20/23 18:56 Nucleated RBC % (auto) 0 % 12/20/23 18:56 Nucleated RBCs # 0.0 /100WBC 12/20/23 18:56 Sodium 138 mmol/L (136-145) 12/20/23 18:56 Potassium 4.2 mmol/L (3.5-5.1) 12/20/23 18:56 Chloride 103 mmol/L (98-107) 12/20/23 18:56 Carbon Dioxide 25 mmol/L (22-29) 12/20/23 18:56 Anion Gap 14.2 (5-19) 12/20/23 18:56 BUN 11 mg/dL (6-20) 12/20/23 18:56 Creatinine 0.8 mg/dL (0.5-0.9) 12/20/23 18:56 GFR Calculation 73.9 mL/min (90-130) L 12/20/23 18:56 Glucose 94 mg/dL (65-115) 12/20/23 18:56 Calculated Osmolality 285 mOsm/kg (285-295) 12/20/23 18:56 Calcium 9.2 mg/dL (8.5-10.5) 12/20/23 18:56 Total Bilirubin 0.2 mg/dL (0.15-1.2) 12/20/23 18:56 AST 13 U/L (0-32) 12/20/23 18:56 ALT 12 U/L (0-33) 12/20/23 18:56 Alkaline Phosphatase 92 U/L (35-105) 12/20/23 18:56 Troponin T Baseline < 6 ng/L (0-10) 12/20/23 18:56 Troponin T 120 Minute 6.00 ng/L (0-10) 12/20/23 20:33 Delta Troponin T 0.97491 ABS# (0-10) 12/20/23 20:33 Total Protein 7.0 g/dL (6.6-8.7) 12/20/23 18:56 Albumin 4.1 g/dL (3.5-5.2) 12/20/23 18:56 Globulin 2.9 g/dL (1.3-4.6) 12/20/23 18:56 Lipase 46 U/L (13-60) 12/20/23 18:56 All radiology interpretation(s) finalized by discharge EKG Data EKG 1: I personally reviewed and interpreted this EKG as follows: EKG interpretation date: 12/20/23 EKG interpretation time: 18:18 Interpretation: nsr hr [address] elevation qrs 78 qtc 404 EKG 2: I personally reviewed and interpreted this EKG as follows: EKG interpretation date: 12/20/23 EKG interpretation time: 20:09 Interpretation: ns hr [address] or t wave abnormalities qrs 72 qtc 416 Discharge Plan Discharge Patient Disposition: Home Clinical Impression: Chest pain Condition: Stable Prescriptions: No Action esomeprazole magnesium [Nexium 24HR] 20 mg capsule,delayed release(DR/EC) 20 mg PO DAILY diphenhydramine-acetaminophen [Tylenol PM Extra Strength] 25-500 mg tablet 1 tab PO Q8H PRN (Reason: Pain) montelukast [Singulair] 10 mg tablet 10 mg PO DAILY propranolol 60 mg tablet See Rx Instructions .ROUTE .COMPLEX Qty: 90 0RF Dose Instruction: TAKE ONE TABLET BY MOUTH THREE TIMES DAILY Rx Instructions: TAKE ONE TABLET BY MOUTH THREE TIMES DAILY primidone 50 mg tablet See Rx Instructions .ROUTE .COMPLEX Qty: 360 0RF Dose Instruction: TAKE TWO TABLETS BY MOUTH TWICE DAILY Rx Instructions: TAKE TWO TABLETS BY MOUTH TWICE DAILY Discharge Orders: Discharge ED (Routine); Ordered 12/20/23 Ordered By: Lino Meade Referrals: Lara Lloyd MD [Primary Care Provider] - 4-7 days Discharge Diet: Advance as tolerated Discharge Activity: Resume usual activity Patient Instructions: Chest Pain (ED) Coding Level of Care Code ED Janitorial Cleaner for Albaro Hernadez
[2023-12-20] MEDS: aspirin 81 mg Chew Tablet 324 MG PO (18:44)
[2023-12-20 19:03] LABS: Basophils # 0.1 10^3/uL (0.0-0.1); Basophils % 0.8 %; Eosinophils # 0.3 10^3/uL (0.0-0.8); Eosinophils % 4.2 %; Hematocrit 41.8 % (36-47); Lymphocytes # 3.5 10^3/uL (0.8-4.8); Lymphocytes % 47.8 %; Mean Corpuscular HGB Conc 33.7 g/dL (30-55); Mean Corpuscular Hemoglobin 32.5 pg (27-33); Mean Corpuscular Volume 96.3 fl (85-98); Mean Platelet Volume 10.7 fL (7.4-10.4); Monocytes # 0.6 10^3/uL (0.2-0.9); Neutrophils # 2.89 10^3/uL (1.8-7.7); Neutrophils % 39.1 %; Nucleated Red Blood Cells % 0 %; Platelet Count 260 10^3/cmm (157-399); Red Blood Count 4.34 10^6/uL (3.85-5.65)
[2023-12-20 19:26] LABS: Troponin(5th) Baseline < 6 ng/L (0-10)
[2023-12-20 19:29] LABS: Alanine Aminotransferase 12 U/L (0-33); Albumin Level 4.1 g/dL (3.5-5.2); Alkaline Phosphatase 92 U/L (35-105); Anion Gap 14.2 (5-19); Aspartate Amino Transferase 13 U/L (0-32); Blood Urea Nitrogen 11 mg/dL (6-20); Calcium 9.2 mg/dL (8.5-10.5); Carbon Dioxide 25 mmol/L (22-29); Chloride 103 mmol/L (98-107); Creatinine Clr Calc Pharmacy 76.8196; Globulin 2.9 g/dL (1.3-4.6); Glomerular Filtration Rate 73.9 mL/min (90-130); Glucose 94 mg/dL (65-115); Lipase 46 U/L (13-60); Osmolality Calculated 285 mOsm/kg (285-295); Potassium 4.2 mmol/L (3.5-5.1); Sodium 138 mmol/L (136-145); Total Bilirubin 0.2 mg/dL (0.15-1.2)
--- NOTE | 2023-12-20 20:29 | ECG_ITS ---
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 Measurements Intervals [place] Rate: 64 P: 60 [place]: 165 QRS: -3 QRSD: 72 T: 13 QT: 407 QTc: 421 Interpretive Statements SINUS RHYTHM MODERATE VOLTAGE CRITERIA FOR LVH, CONSIDER NORMAL VARIANT [MEETS CRITERIA IN ONE OF: R(aVL), S(V1), R(V5), R(V5/V6)+S(V1)] Compared to ECG 12/20/2023 18:18:40 No significant changes Electronically Signed On 12-22-2023 20:36:05 CDT by Mally Purdy M.D. [id number]
[2023-12-20 20:55] LABS: Troponin 5 2HR Delta 0.00001 ABS# (0-10)
== END 2023-12-20 21:14 | disposition home or self-care (01) ==
PROVIDERS: Emergency Provider Emergency Medicine; PCP Family Medicine
DX: R07.9 Chest pain, unspecified (principal)
CPT/HCPCS: 71045; 80053; 83690; 84484; 85025; 93005; 99285

== ENCOUNTER 2024-04-20 11:29 | Outpatient (CLI) | payer OTHER, SELFPAY ==
[2024-04-20 11:49] VITALS: BMI 34.4
--- NOTE | 2024-04-20 11:53 | ECG_ITS ---
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 Interpretive Statements EXERCISE STRESS TEST EXERCISE DATA: The patient was exercised by Mio protocol. Baseline heart rate was 73 beats per minute. Baseline blood pressure was 145/88 millimeters of mercury. Maximal predicted heart rate was 162 beats per minute. Maximum heart rate achieved was 140 which was 86% of the maximum predicted heart rate. Maximum blood pressure was 186/78 millimeters of mercury. Total exercise time was 6 minutes. Maximum METs achieved was 7.0. The reason for ending the test was completion of protocol. The patient complained of [] during the stress test, which then resolved at the end of the test. ELECTROCARDIOGRAM: BASELINE: Showed sinus rhythm, normal axis, no significant ST-T changes at the baseline noted. [] EXERCISE: At the peak exercise level, [] non specific [address] depressions seen in leads II, III, aVF and leads V4-6. RECOVERY: During the recovery period, heart rate dropped appropriately. No significant ST-T changes in the recovery suggestive of ischemia noted. [] CONCLUSION: 1. Exercise capacity is fair 2. Heart rate response was appropriate. 3. Blood pressure response was appropriate. 4. Symptoms not suggestive of ischemia. 5. Stress test is non-diagnostic as EKG obtained is at less than target heart rates and changes are non-specific not meeting criteria for ischemia Electronically Signed On 04-24-2024 20:45:27 CDT by Arya Palomino M.D. [id number]
[2024-04-20 12:46] VITALS: BP 167/84; PULSE 88
== END 2024-04-20 11:30 | disposition home or self-care (01) ==
PROVIDERS: PCP Family Medicine; Visit Provider Family Medicine
DX: R07.9 Chest pain, unspecified (principal); R06.02 Shortness of breath
CPT/HCPCS: 93017

== ENCOUNTER 2024-05-25 06:39 | Outpatient (CLI) | payer OTHER, SELFPAY ==
--- NOTE | 2024-05-25 07:15 | MR_ITS ---
WS: [id number] MRI HEAD WITH CONTRAST WITH ATTENTION TO THE INTERNAL AUDITORY CANALS TECHNIQUE: Sagittal T1, T2 axial, T2 axial flair, axial susceptibility weighted imaging, axial diffus ion weighted images, and coronal T2 images were obtained. Pre and post T1 axial and post T1 coronal i mages. ADC and FSPGR images. Post gadolinium images with attention to the internal auditory canals. A xial fiesta imaging. CLINICAL INFORMATION: H91.90 - Unspecified hearing loss, unspecified ear COMPARISON: MRI 2014 FINDINGS: No evidence of restricted diffusion to suggest acute ischemia. Mild small vessel changes with mild pa renchymal volume loss worse in the parietal lobes. Normal posterior fossa. Normal vascular flow voids at the skull base. No extra-axial fluid collections. Mild mucosal thickening RIGHT maxillary sinus. Mastoid air cells are well aerated. Mild mucosal thickening LEFT mastoid tip. Normal posterior nasop harynx. Normal optic chiasm and pituitary infundibulum. Temporal lobes hippocampal formations are normal in a ppearance. No evidence of enhancing IAC or CP angle mass. Normal trigeminal nerve root entry zones. MR/MR iac's wo/w con* [id number] IMPRESSION: 1. No evidence of restricted diffusion to suggest acute ischemia. 2. Mild small vessel changes with mild parenchymal volume loss progressed sinc e 2013 3. Proximal 7th and 8th cranial nerves are normal in appearance. Normal trigem inal nerve root entry zones. 4. No evidence of enhancing IAC or CP angle mass. 5. Mild mucosal thickening LEFT mastoid tip. RIGHT mastoid air cells are well aerated. 6. No abnormal gadolinium enhancement.
[2024-05-25] MEDS: gadobenate dimeglumine 20 mL vial IV (07:32)
== END 2024-05-25 06:40 | disposition home or self-care (01) ==
PROVIDERS: PCP Family Medicine; Visit Provider Specialist
DX: H91.90 Unspecified hearing loss, unspecified ear (principal)
CPT/HCPCS: 70553

== ENCOUNTER 2024-06-03 06:58 | Outpatient (CLI) | payer OTHER, SELFPAY ==
[2024-06-03 08:01] LABS: Creatine Phosphokinase 64 U/L (26-192); Erythrocyte Sedimentation Rate 1 mm/hr (0-15)
[2024-06-03 08:16] LABS: Vitamin B12 363 pg/mL (232-1245)
== END 2024-06-03 06:59 | disposition home or self-care (01) ==
PROVIDERS: PCP Family Medicine; Visit Provider Specialist
DX: G72.9 Myopathy, unspecified (principal)
CPT/HCPCS: 36415; 82085; 82550; 82607; 82747; 85651

== ENCOUNTER 2024-12-21 08:17 | Outpatient (CLI) | payer OTHER, SELFPAY ==
--- NOTE | 2024-12-21 08:40 | MM_ITS ---
WS: [id number] BILATERAL SCREENING DIGITAL TOMOSYNTHESIS MAMMOGRAM WITH CAD HISTORY: screening COMPARISON: 10/23/2021 Bilateral CC and MLO views with tomosynthesis and synthetic mammography submitted. Computer aided detection analyzed. Breast composition: The breasts are almost entirely fatty. No suspicious masses, microcalcifications or architectural distortion. MM/MM scr BI tomosynthesis [id number] IMPRESSION: BI-RADS: 1 - Negative. FOLLOW UP: 1 Year Follow-up
== END 2024-12-21 08:18 | disposition home or self-care (01) ==
PROVIDERS: PCP Family Medicine; Visit Provider Family Medicine
DX: Z12.31 Encounter for screening mammogram for malignant neoplasm of breast (principal); R92.313 Mammographic fatty tissue density, bilateral breasts
CPT/HCPCS: 77063; 77067

== ENCOUNTER 2025-01-01 07:46 | Outpatient (CLI) | payer OTHER, SELFPAY ==
[2025-01-01 08:16] LABS: Basophils # 0.1 10^3/uL (0.0-0.1); Basophils % 1.3 %; Eosinophils # 0.2 10^3/uL (0.0-0.8); Eosinophils % 4.9 %; Hematocrit 40.7 % (36-47); Lymphocytes # 2.2 10^3/uL (0.8-4.8); Lymphocytes % 45.8 %; Mean Corpuscular HGB Conc 33.7 g/dL (30-55); Mean Corpuscular Hemoglobin 32.7 pg (27-33); Mean Corpuscular Volume 97.1 fl (85-98); Monocytes # 0.3 10^3/uL (0.2-0.9); Monocytes % 7.2 %; Neutrophils # 1.93 10^3/uL (1.8-7.7); Neutrophils % 40.6 %; Nucleated Red Blood Cells % 0 %; Platelet Count 224 10^3/cmm (157-399); Red Blood Count 4.19 10^6/uL (3.85-5.65); Red Cell Distribution Width 13.6 % (12.1-15.1); White Blood Count 4.74 10^3/uL (3.29-11.43)
[2025-01-01 08:47] LABS: Alanine Aminotransferase 17 U/L (0-33); Albumin Level 3.8 g/dL (3.5-5.2); Alkaline Phosphatase 84 U/L (35-105); Aspartate Amino Transferase 19 U/L (0-32); Blood Urea Nitrogen 11 mg/dL (6-20); Calcium 9.3 mg/dL (8.5-10.5); Carbon Dioxide 24 mmol/L (22-29); Chloride 106 mmol/L (98-107); Chol HDL Ratio 2.98 mg/dL (0.0-4.40); Cholesterol 149 mg/dL (0-200); Free T4 Free Thyroxine 1.23 ng/dL (0.82-1.77); Glomerular Filtration Rate 85.9 mL/min (90-130); Glucose 82 mg/dL (65-115); HDL Cholesterol 50 mg/dL (60-100); LDL Cholesterol Calculated 85 mg/dL (50-129); Osmolality Calculated 288 mOsm/kg (285-295); Sodium 140 mmol/L (136-145); Thyroid Stimulating Hormone 1.53 uIU/mL (0.27-4.20); Total Bilirubin 0.3 mg/dL (0.15-1.2); Total Protein 6.8 g/dL (6.6-8.7); Triglycerides 71 mg/dL (0-150)
== END 2025-01-01 07:47 | disposition home or self-care (01) ==
PROVIDERS: PCP Family Medicine; Visit Provider Family Medicine
DX: G25.0 Essential tremor (principal)
CPT/HCPCS: 36415; 80053; 80061; 84439; 84443; 85025

== ENCOUNTER 2025-06-01 00:16 | Emergency (ER) | payer OTHER, SELFPAY ==
[2025-06-01] VITALS (7 sets, daily range): BP systolic 153–185; BP diastolic 90–106; PULSE 61–69; RESP 18–22; TEMP 36.4; O2SAT 97–100; BMI 34.0
--- NOTE | 2025-06-01 01:48 | CTR_ITS ---
PROCEDURE INFORMATION: Exam: CT Abdomen And Pelvis With Contrast Exam date and time: 06/01/2025 3:18 AM Age: 60 years old Clinical indication: Abdominal pain; Additional info: Anorexia-> rlq pain TECHNIQUE: Imaging protocol: Computed tomography of the abdomen and pelvis with contrast. Radiation optimization: All CT scans at this facility use at least one of these dose optimization techniques: automated exposure control; mA and/or kV adjustment per patient size (includes targeted exams where dose is matched to clinical indication); or iterative reconstruction. Contrast material: OMNI 350; Contrast volume: 100 ml; Contrast route: INTRAVENOUS (IV); COMPARISON: CT kidney stone [id number] 09/19/2020 8:02 AM RADIATION DOSE METRICS: Total DLP (mGy-cm): 886.58 FINDINGS: Liver: Normal. No mass. Gallbladder and biliary ducts: Cholelithiasis. Pancreas: Normal. No ductal dilation. Spleen: Normal. No splenomegaly. Adrenal glands: Normal. No mass. Kidneys and ureters: Normal. No hydronephrosis. Stomach and bowel: Diverticulosis, without acute diverticulitis. No small bowel obstruction. No free air. Appendix: No evidence of appendicitis. Intraperitoneal space: See Stomach and bowel finding. Vasculature: Atherosclerotic changes of the aorta. Lymph nodes: Unremarkable. No enlarged lymph nodes. Urinary bladder: Unremarkable as visualized. Reproductive: Unremarkable as visualized. Bones/joints: Degenerative changes of the spine. Soft tissues: Lipomatous hypertrophy of the ileocecal valve. CT/CT abdomen pelvis w con* [id number] IMPRESSION: 1. Cholelithiasis. 2. Diverticulosis, without acute diverticulitis. No small bowel obstruction. No free air.
--- OUTSIDE RECORDS SUMMARY | 2025-06-01 01:50 | XMS_ITS | Data Portability ---
Author Organization [facility], Jin[facility]inJin, [facility] Address [address] [address] Care Team Providers Care It Security Engineer Name Role Phone LARA DIETZ Primary Care Provider Assessment Encounter Date Assessment Date Assessment LastModified by Organization Details LastModified Time 08/12/2023 08/12/2023 Patient presents with symptoms of UTI. Results of dipstick were for UTI. Advised to drink clear fluids, Tylenol for pain and take prescribed medications as instructed. Patient encouraged to follow up within 1 week if not improving. [email or web address] Not available 08/12/2023 08:17:16 Plan of Treatment Reminders Order Date Submit Date Provider Last Modified By Organization Details Last Modified Time Details Appointments None recorded. Lab urinalysis, complete 2023 [email or web address] [facility] ([facility]), [address] [place] [address], [phone], 4 08:45:02 culture, urine 2023 024 Justinmind [facility], [address] [place] [address], [facility] [address] [place], [address], 4 04:46:06 Referral otolaryngol ogist referral 2023 024 [email or web address] 2 Akshat Villegas MD, [address] , [place], [address], 4 15:48:14 Procedures None recorded. Surgeries None recorded. Imaging exercise stress test [email or web address] [facility] (Scheduling Orders), [address] [place], [address], 4 13:27:45 Medication Orders Diflucan 150 mg tablet 2023 024 [email or web address] 40 [facility], [address], [place], [address], 4 12:05:23 Augmentin 875 mg-125 mg tablet 2023 024 [email or web address] 40 [facility], [address], [place], [address], 4 12:05:19 ondansetron 4 mg disintegrat ing tablet 2023 024 PRISCA [facility], [address] [place] [address], [address], 4 09:13:41 Bactrim 400 mg-80 mg tablet 2023 024 [email or web address] [facility], [address] [place] [address], [address], 4 14:31:53 Patient TargetsNo targets recorded. Patient InstructionsNo instructions recorded. 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 Referral fo r Tinnitus of left ear Referring Physician: Lara Dietz, Family Medicine, Encounter Date: 01/13/2024 Results Created Date Observation Date Name Description Value Unit Range Abnormal Flag Note LastModifiedBy Organization Detail LastModifiedTime 08/12/19 24 08/14/2023 CULTU RE, URINE , ROUTI NE culture, urine, routine SEE NOTE abnormal CULTU RE, URINE , ROUTI NE Micro Numbe r: [id number] Test Statu s: Final Speci men Sourc e: Urine Speci men Quali ty: Adequ ate Resul t: 10,00 0-49, 000 CFU/m L of Enter ococc us faeca lis COMME NT: Addit ional non-p redom inati ng organ ism(s ) isola marilu. These organ isms, commo nly found on exter nal and inter nal genit arabella, are consi dered colon izers . No furth er testi ng perfo rmed. E.angela calis ----- ----- ----- - INT KAIDEN AMPIC ILLIN S <=2 NITRO FURAN TOIN S <=16 VANCO MYCIN S 1 S=Angie cepti ble I=Int ermed iate R=Res istan t * = Not Teste d NR = Not Repor marilu NN = See Thera py Comme nts Not Available [facility] [address] [place], [address], 08/15/2023 00:48:17 08/12/19 24 08/12/2023 urina lysis , compl ete color yellow Not Available [facility] ([facility]) [address] [place], [address], 08/12/2023 08:04:01 08/12/19 24 08/12/2023 urina lysis , compl ete clarity hazy clear Not Available [facility] ([facility]) [address] [place], [address], 08/12/2023 08:04:01 08/12/19 24 08/12/2023 urina lysis , compl ete glucose neg negati ve Not Available [facility] ([facility]) [address] [place], [address], 08/12/2023 08:04:01 08/12/19 24 08/12/2023 urina lysis , compl ete bilirubin neg negati ve Not Available [facility] ([facility]) [address] [place], [address], 08/12/2023 08:04:01 08/12/19 24 08/12/2023 urina lysis , compl ete ketones 1+ negati ve abnormal Not Available [facility] ([facility]) [address] [place], [address], 08/12/2023 08:04:01 08/12/19 24 08/12/2023 urina lysis , compl ete specific gravity 1.025 1.005- 1.025 Not Available [facility] ([facility]) [address] [place], [address], 08/12/2023 08:04:01 08/12/19 24 08/12/2023 urina lysis , compl ete pH 7.5 5.0-7. 0 Not Available [facility] ([facility]) [address] [place], [address], 08/12/2023 08:04:01 08/12/19 24 08/12/2023 urina lysis , compl ete protein 1+ abnormal Not Available [facility] ([facility]) [address] [place], [address], 08/12/2023 08:04:01 08/12/19 24 08/12/2023 urina lysis , compl ete uro 1.0 Not Available [facility] ([facility]) [address] [place], [address], 08/12/2023 08:04:01 08/12/19 24 08/12/2023 urina lysis , compl ete nitrate neg negati ve Not Available [facility] ([facility]) [address] [place], [address], 08/12/2023 08:04:01 08/12/19 24 08/12/2023 urina lysis , compl ete blood neg negati ve Not Available [facility] ([facility]) [address] [place], [address], 08/12/2023 08:04:01 08/12/19 24 08/12/2023 urina lysis , compl ete leukocytes neg negati ve Not Available [facility] ([facility]) [address] [place], [address], 08/12/2023 08:04:01 08/12/19 24 08/12/2023 urina lysis , compl ete WBC 10-15 0 abnormal Not Available [facility] ([facility]) [address] [place], [address], 08/12/2023 08:04:01 08/12/19 24 08/12/2023 urina lysis , compl ete RBC 3-4 0 abnormal Not Available [facility] ([facility]) [address] [place], [address], 08/12/2023 08:04:01 08/12/19 24 08/12/2023 urina lysis , compl ete epi cells 3-4 0 abnormal Not Available [facility] ([facility]) [address] [place], [address], 08/12/2023 08:04:01 08/12/19 24 08/12/2023 urina lysis , compl ete bacteria trace of mixed jeanne abnormal Not Available [facility] ([facility]) [address] [place], [address], 08/12/2023 08:04:01 08/12/19 24 08/12/2023 urina lysis , compl ete other neg Not Available [facility] ([facility]) [address] [place], [address], 08/12/2023 08:04:01 12/19/19 24 12/24/2023 TISSU E PATHO LOGY clinical information Spot on earlo be Not Available [address] [address] [place], [address], 12/24/2023 14:43:14 12/19/19 24 12/24/2023 TISSU E PATHO LOGY pathologist Ximena pickering M.D., Board Certi fied in Anato kaiden Patho logy and Clini benjamin Patho logy( elect meenakshi dee) Not Available [address] [address] [place], [address], 12/24/2023 14:43:14 12/19/19 24 12/24/2023 TISSU E PATHO LOGY A source Skin, left earlo be, biops y Not Available [address] [address] [place], [address], 12/24/2023 14:43:14 12/19/19 24 12/24/2023 TISSU E PATHO LOGY A gross description Speci men is recei jesus in 10% neutr al buffe red forma familia, label ed with multi ple patie nt ident ifier s and consi sts of two piece (s) of skin aggre gatin g to 1.0 x 0.5 x 0.3 cm, irreg ular in shape and yello w-whi te in color . The paul ns are inked green . The large st piece is longi tudin ally bisec marilu and all piece s are entir gilbert submi tted in one casse tte(s ). 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 Not Available [employer] [facility] [address] [place], [address], 12/24/2023 14:43:14 04/24/2004/20/2024 exerc ise stres s test No observ ation record ed. [email or web address] [facility] [address] [place], [address], 04/28/2024 13:20:24 Result Notes None recorded. Problems Name Problem SNOMED Code Status Onset Date Resolution Date Notes Provider Name and Address Organization Details Recorded Time Contrace ptive counseli ng Completed 201812/04/2018 GENERAL COUNSELI NG AND ADVICE FOR CONTRACE PTIVE MANAGEME NT - Status is Inactive ; Recorded 12/05/19 7:36AM by Evelia Hassan CMT, Annotati on/Adden dum; Promoted ; acuity set as *; Not Available [facility] 3 03:15:45 Genital herpes simplex 43279496 Completed 201912/21/2019 HERPES GENITAL - Status is Inactive ; Recorded 12/21/19 10:48AM by Lara Dietz MD, Annotati on/Adden dum; Promoted ; acuity set as *; Not Available [facility] 3 03:15:46 Kidney stone 55936499 Active 2022 Nephroli thiasis; [facility], 0.; 08/27/19 7:49AM by Beth Castro, Office Visit; Promoted ; acuity set as *; [facility] Available [facility] 3 03:15:45 Gastroes ophageal reflux disease 479308064 Active 2022 ESOPHAGE AL REFLUX; Recorded 08/27/19 7:49AM by Beth Castro, Office Visit; Promoted ; acuity set as *; Not Available [facility] 3 03:15:46 Systemic lupus erythema tosus 79786036 Active 2022 SYSTEMIC LUPUS ERYTHEMA TOSUS; no meds in 10 years for it, last saw rheum 5 years ago; 08/27/19 7:49AM by Beth Castro, Office Visit; Promoted ; acuity set as *; Not Available [facility] 3 03:15:46 Pilonida l cyst 11845944 Active 2022 Pilonida l Cyst; 08/27/19 7:49AM by Beth Castro, Office Visit; Promoted ; acuity set as *; Not Available [facility] 3 03:15:47 Ess[facility]ia l tremor 335435828 Active 2023 Phillip Aguillon MD [address] [place] [address], [address] , [facility] 4 15:53:06 Chest pain 73688626 Active 2023 Phillip Aguillon MD [address] [place] [address], [address] [place] [address] , [facility] 4 15:53:26 Elevated blood-pr essure reading without diagnosi s of hyperten chioma 454715886 Active 2023 Phillip Aguillon MD [address] [place] [address], [address] , [facility] 4 15:56:17 Problem Notes None recorded. Procedures Surgical History Date Name Laterality Status Provider Name and Address Organization Details Recorded Time removal of pilonidal cyst completed [facility], [place] 12/19/2023 12:06:53 percutaneous extraction of kidney stone with fragmentation procedure completed [facility], [place] 12/19/2023 12:07:15 Imaging Results None recorded. Procedure Notes None recorded. Medical Equipment None Reported. Allergies No known drug allergies Medications Name Sig Start Date Stop Date Status Note LastModified by Organization Details LastModified Time primidone 50 mg tablet TAKE TWO TABLETS BY MOUTH TWICE DAILY active Not Available Not Available No t Available Zyrtec-D 5 mg-120 mg tablet,ex tended release prn active 0; Recorded 02/13/20 23 7:49AM by Beth Castro, Office Visit; Not Available Not Available Not Available azithromy cornelius 250 mg tablet TAKE 2 TABLETS (500 MG) BY ORAL ROUTE ONCE DAILY FOR 1 DAY THEN 1 TABLET (250 MG) BY ORAL ROUTE ONCE DAILY FOR 4 DAYS 11/30 completed Not Available Not Available Not Available fluconazo le 150 mg tablet TAKE 1 TABLET BY MOUTH ONCE DAILY FOR 1 DAY 12/18 completed Not Available Not Available Not Available sulfameth oxazole 400 mg-trimet hoprim 80 mg tablet TAKE 1 TABLET BY MOUTH EVERY TWELVE HOURS for 7 days 11/30 completed Not Available Not Available Not Available valacyclo vir 1 gram tablet TAKE 1 TABLET BY MOUTH EVERY TWELVE HOURS for 7 days 12/18 completed Not Available Not Available Not Available Claritin 10 mg tablet daily 11/30 completed 0; Recorded 08/27/19 23 7:49AM by Beth Castro, Office Visit; Not Available Not Available Not Available prednison e 20 mg tablet Take 2 tablets every day by oral route for 5 days. 11/30 completed Not Available Not Available Not Available propranol ol 60 mg tablet TAKE ONE TABLET BY MOUTH THREE TIMES DAILY active Not Available Not Available No t Available Nexium 20 mg capsule,d elayed release daily active 0; Recorded 08/27/19 23 7:49AM by Beth Castro, Office Visit; Not Available Not Available Not Available monteluka st 10 mg tablet TAKE 1 TABLET BY MOUTH AT BEDTIME 11/30 completed Not Available Not Available Not Available ondansetr on 4 mg disintegr ating tablet Place 1 tablet 3 times a day by translin gual route as needed. active Not Available Not Available No t Available amoxicill in 875 mg-potass ium clavulana te 125 mg tablet TAKE 1 TABLET BY MOUTH EVERY 12 HOURS FOR 7 DAYS 12/18 completed Not Available Not Available Not Available nitrofura ntoin monohydra te/macroc rystals 100 mg capsule TAKE ONE CAPSULE BY MOUTH EVERY TWELVE HOURS FOR SEVEN DAYS 11/30 completed Not Available Not Available Not Available melatonin at bedtime 11/30 completed 0; Recorded 08/27/19 23 7:49AM by Beth Castro, Office Visit; Not Available Not Available Not Available Diflucan one time dose 11/30 completed kf/at; [address]645; Recorded 11/26/19 9:10AM by Ayala Segovia RN (Carlos morillo through [facility]), Refill Request; Refill Quantity : 0; Not Available Not Available Not Available propranol ol three times daily 11/30 completed 0; Recorded 08/27/19 7:49AM by Beth Castro, Office Visit; Not Available Not Available Not Available cephalexi n bid 11/30 completed aniceto/LB; Recorded 08/27/19 7:49AM by Beth Castro, Office Visit; Refill Quantity : 0; Not Available Not Available Not Available ProAir HFA 90 mcg/actua tion aerosol inhaler every 2-4 hours as needed 11/30 completed Recorded 01/14/20 2:56PM by Cristiana Park, Office Visit; Refill Quantity : 1; Each; Not Available Not Available Not Available Probiotic Formula (inulin) 1 billion cell-250 mg capsule daily 11/30 completed 0; Recorded 08/27/19 7:49AM by Beth Castro, Office Visit; Not Available Not Available Not Available Vitals Date Recorded Body height Body mass index (BMI) Body weight Oxygen saturation Oxygen saturation in Arterial blood by Pulse oximetry Heart rate Respiratory rate Body temperature Systolic And Diastolic Provider Name and Address Organization Details Last Updated DateTime 4 157.48 cm 34.4 kg/m2 87537.0 8 g 98 % 98 % 89 /min 15 /min 97.3 [degF] 132/82 mm[Hg] Tania Amador [facility] 4 08:18:33 Date Recorded Body height Body mass index (BMI) Body weight Body temperature Respiratory rate Heart rate Oxygen saturation Oxygen saturation in Arterial blood by Pulse oximetry Systolic And Diastolic Provider Name and Address Organization Details Last Updated DateTime 4 157.48 cm 34.4 kg/m2 98803.0 7 g 98 [degF] 17 /min 78 /min 97 % 97 % 140/88 mm[Hg] JEFF PORTER [facility] 4 14:29:27 Date Recorded Body height Body mass index (BMI) Body weight Body temperature Oxygen saturation Oxygen saturation in Arterial blood by Pulse oximetry Heart rate Systolic And Diastolic Provider Name and Address Organization Details Last Updated DateTime 4 157.48 cm 34.2 kg/m2 79813.7 7 g 96.9 [degF] 98 % 98 % 71 /min 140/90 mm[Hg] YASH CAMPBELL [facility] 4 12:04:59 Date Recorded Body height Body mass index (BMI) Body weight Body temperature Oxygen saturation Oxygen saturation in Arterial blood by Pulse oximetry Heart rate Systolic And Diastolic Provider Name and Address Organization Details Last Updated DateTime 4 157.48 cm 34.2 kg/m2 89898.7 7 g 97.3 [degF] 99 % 99 % 72 /min 136/82 mm[Hg] ARIN ALFARO [facility] 4 10:42:15 Date Recorded Body height Body mass index (BMI) Body weight Heart rate Systolic And Diastolic Provider Name and Address Organization Details Last Updated DateTime 04/29/2024 157.48 cm 33.7 kg/m2 94428 g 70 /min 151/100 mm[Hg] CATRINA JHA [facility] 4 15:35:36 Social History None recorded. Functional Status None recorded. Mental Status None recorded. Family History Relationship Description Onset Age of this Age Resolved Age Notes LastModified by Organization Details LastModified Time Father Parkinson's disease [email or web address] Not available 12/2023 12:06:16 Mother Hypertensive disorder Asthma , AFIB [email or web address] Not available 12/19/2023 12:06:37 Medical History Condition Response Coronary Artery Disease N Other Y Gout N Kidney Stones N Blood Diseases N Hyperthyroidism N Breast Cancer N Blood Transfusion N Depression N Hypothyroidism N Lung Disease N COPD N Developmental or Behavioral Disorders N Defects or Inherited Disease N Breast Problem N Difficulty Swallowing N Anesthesia Complications N Anxiety Disorder N Meniere's disease N Muscle, Joint, or Bone Problems N Vision or Eye Problems N Arthritis N Infertility N Polyps N Cancer N Stroke N Varicosities N Endometriosis N Bladder or Kidney Problems N High Cholesterol N Liver Disease N Fibromyalgia N Headaches N Kidney Disease N Allergies/Hayfever Y Heart Problems N Ear or Hearing Problems N Hospitalizations N Thyroid Problems N GI Problems N ADD/ADHD N Skin Problems N Eating Disorder N Anemia N Constipation N Mental Illness N Ovarian Cancer N Diabetes N Bedwetting N Seizures/Epilepsy N Tuberculosis N Eczema N Diverticulitis N Abuse/Domestic Violence N Asthma N Reflux/GERD N Hepatitis N Heart Disease N Pulmonary Embolism N Pre-Eclampsia N Hypertension N Chronic Ear Infections N Osteoporosis N Chicken Pox N Autism Spectrum Disorder (ASD) N Thrombophilias N Gynecological HistoryNo gynecological history recorded. Obstetrics History GPAL:G 0 P 0 0 0 0 Immunizations Vaccine Type Date Status Note Provider Nam e and Address Organization Details Recorded Time Influenza, split virus, trivalent, preservative 0 completed Not Available [facility] 02/09/2023 02:48:49 TST-PPD intradermal 3 completed Not Available [facility] 02/09/2023 02:48:49 Influenza, split virus, trivalent, preservative 6 completed Not Available [facility] 02/09/2023 02:48:49 Influenza, split virus, trivalent, preservative 7 completed Not Available [facility] 02/09/2023 02:48:49 COVID-19, mRNA, LNP-S, PF, 100 mcg/0.5mL dose or 50 mcg/0.25mL dose 1 completed YASH mills [facility] 12/19/2023 12:05:11 COVID-19, mRNA, LNP-S, PF, 100 mcg/0.5mL dose or 50 mcg/0.25mL dose 2 completed YASH mills [facility] 12/19/2023 12:05:11 COVID-19, mRNA, LNP-S, PF, 100 mcg/0.5mL dose or 50 mcg/0.25mL dose 1 completed YASH mills [facility] 12/19/2023 12:05:11 COVID-19, mRNA, LNP-S, PF, 100 mcg/0.5mL dose or 50 mcg/0.25mL dose 0 completed YASH mills, [facility] 12/19/2023 12:05:11 COVID-19, mRNA, LNP-S, bivalent, PF, 50 mcg/0.5 mL or 25mcg/0.25 mL dose 2 [facility]/19/2023 12:05:11 COVID-19, mRNA, LNP-S, PF, 50 mcg/0.5 mL 3 completed [facility] 12/19/2023 12:05:11 Influenza, split virus, quadrivalent, PF 2 completed [facility] 12/19/2023 12:05:12 Past Encounters Encounter ID Performer Location Encounter Start Date Encounter Closed Date Diagnosis/Indication Diagnosis SNOMED-CT Code Diagnosis ICD10 Code Diagnosis IMO Codes Diagnosis Note [id number] ANNAMARIA REARDON [facility]) [address] [place] [phone] 05/18/2023 13:37:05 05/18/2023 14:43:52 Bronchitis 39226335 J40 [id number] OSBALDO SÁNCHEZ [facility] ([facility]) [address] [place] [phone] 07/06/2023 10:02:58 07/06/2023 15:48:34 Herpes zoster 2083802 B02.9 [id number] DEMETRIO PEARSON [facility]) [address] [place] [phone] 08/12/2023 08:01:02 08/12/2023 10:26:16 Acute urinary tract infection 139308090 N39.0 UA results reviewed and discussed with pt. We will start antibiotic s. Pt will increase oral fluids and can use cranberry. Return to office with no improvemen t or any problems. Go to ER with severe worsening or severe problems.W e will obtain urine culture Nausea 102890742 R11.0 [id number] [facility] ([facility]) [address] [place] [address] 5 12/01/2023 14:09:48 12/01/2023 14:54:32 Acute suppurative otitis media without spontaneous rupture of ear drum 45353188 H66.002 Discussed use of antibiotic the full 7 days. May take tylenol/mo serge for discomfort .Use Flonase or Nasonex nasal spray daily.Retu rn if you develop worsening pain, drainage from the ear or concerns arise. Vaginitis 74605161 N76.0 Pt states she develops yeast infections with antibiotic s so diflucan prescribed . [id number] Lara Dietz MD [facility] ([facility]) [address] [place] [address] 5 12/19/2023 11:53:26 12/19/2023 17:05:55 Pain of ear 084972595 H92.09 exam wnl. possible eustacian tube dysfunctio n v tmj related [id number] Lara Dietz MD [facility] ([facility]) [address] [place], [place] [phone] 01/13/2024 10:30:02 01/13/2024 12:06:34 Tinnitus of left ear 9873363253 106 H93.12 and hearing loss. Chest pain 34856611 R07. 9 left chest pain radiating down arm - onset with stress Blood chem istry outside reference range 791605720 R79.9 GFR was low 74.6 at the ER. bun, cr wnl. reassuranc e. [id number] Phillip Aguillon MD [facility] ([facility]) [address] [place], [place] [phone] 04/29/2024 15:13:52 05/01/2024 08:15:49 Essential tremor 466825204 G25.0 stable on present meds. Chest pain 45998029 R07. 9 resolved and negative stress test. Elevated blood-pressure reading without diagnosis of hypertension 645432397 R03.0 Will monitor at home and let Dr. Dietz know in a couple of weeks. I do not want her blood pressure to bottom out. Health Concerns Section Related Observation LastModified by Organization Detai ls LastModified Time None Recorded Concern Status LastModified by Organization Details LastModified Time None Recorded Advance Directives Directive None Recorded Payers Insurance Date Sequence Insurance Name Policy Number Policy Li Covered Member ID Li Member ID Guarantor Name 04/29/2024 1 [facility] [employer] ([facility]) [id number] Akila Sheeba Gooden [id number] Akila Gooden Notes Date Note Type Note Provider Name and Address Organization Details Recorded Time 08/12/19 24 text/htm l Lower Urinary Tract Symptoms (LUTS)Reported by PatientHPIFor context, patient reportsabnormal voiding frequencybut reportsdenies excessive fluid intake,changes in voiding affect quality of life,history of urinary tract infection,history of kidney stones, andhas seen urologist. For associated symptoms, patient reportsgroin pain,urgency,frequency,dysuria , andnocturia 8 times a nightbut reportsno low back pain,no fever,no diarrhea,no nausea,no vomiting, andno urine odor. For location, patient reportsbilateral. For quality, patient reportstender,aching,continuou s, andloss of function. For severity, patient reportsworsening,mild, andmoderate. For onset/timing, patient reportsconstant,4-10 times a day,daytime,evening, andnighttime/while sleeping. For duration, patient reportsacuteand< 1 week. For aggravating factors, patient reportsincreased fluidandfluids before bedtime. For alleviating factors, (excedrin; zofran).58 y/o female presents with urinary urgency that started 2 days ago. The urgency woke her up multiple times last night with small voids. Has nausea this morning. Denies fever or vomiting. She took tylenol and excedrin with limited relief. Took a zofran this morning.ROS as noted in the HPI [facility] [address] [place], [address], [facility], Ketan 08/12/2023 08:45:20 12/01/19 24 text/htm l Ear Pain Brief HPIReported by PatientHPIFor quality, patient reportsshooting pain. For associated symptoms, patient reportsvertigoanddecreased hearing. For location, patient reportsleft. For onset/timing, patient reportsstarted 1weeks agoandintermittent pain. For severity, patient reportsno fever.ROS as noted in the HPI Patient states that she's had a left ear problem for the past week. Not painful all the time but occasionally she will have a sharp shooting pain. She states she just can't hear out of it and her balance is off. She's been using over the counter ear wax drops but they have not helped. TRI LEWIS [address] [place] [address], [phone], [facility], [facility]LJin[facility]. 12/01/2023 15:58:34 12/19/19 24 text/htm l Ear Pain Brief HPIReported by PatientHPIFor quality, patient reportssharp pain. For associated symptoms, patient reportsvertigo,hearing loss,tinnitus, andmuffled hearingbut reportsno discharge from earandno jaw pain. For location, patient reportsleft.ROS as noted in the HPI didnt get any better with the antibiotic.life has been crazy - dad recently Lara Dietz MD [address] [place] [address], [phone], [facility], [facility]. 12/24/2023 19:45:46 01/13/20 24 text/htm l ER f/u- went in for chest painchest pain on left side going down left armwas just driving home from work into her garage - life in general is stressful - father passed 3 weeks ago, mother on hospice. not well.has not recurred since then. still cant hear from left ear.. no pain but still hearing loss and buzzine noise Lara Dietz MD [address] [place] [address], [phone], [facility], [facility] 01/13/2024 14:09:10 OBGyn Episode No OBEpisode recorded.
[2025-06-01] MEDS: ondansetron 2 mg/ML SDV 2 mL 4 MG IVP (02:08)
[2025-06-01] MEDS: morphine 4 mg/mL SDV 1 mL IVP (02:08)
--- NOTE | 2025-06-01 02:19 | ECG_ITS ---
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 Measurements Intervals Hardy Rate: 67 P: 63 [place]: 161 QRS: 5 QRSD: 79 T: 39 QT: 401 QTc: 426 Interpretive Statements SINUS RHYTHM Compared to ECG 12/20/2023 20:09:35 No significant changes Electronically Signed On 06-02-2025 08:53:59 LUMBER LOADER by Mally Purdy M.D. [email or web address]
[2025-06-01 02:22] LABS: Hematocrit 41.9 % (36-47); Hemoglobin 14.10 g/dL (11.27-16.99); Mean Corpuscular HGB Conc 33.7 g/dL (30-55); Mean Corpuscular Hemoglobin 32.3 pg (27-33); Mean Corpuscular Volume 95.9 fl (85-98); Nucleated Red Blood Cells % 0 %; Platelet Count 255 10^3/cmm (157-399); Red Blood Count 4.37 10^6/uL (3.85-5.65); White Blood Count 9.32 10^3/uL (3.29-11.43)
[2025-06-01 02:22] LABS: Glucose Urine UA Negative (Normal); Nitrate Urine Negative (Negative); Specific Gravity, Urine 1.025 (1.005-1.030)
[2025-06-01 02:23] LABS: Alanine Aminotransferase 14 U/L (0-33); Albumin Level 4.0 g/dL (3.5-5.2); Alkaline Phosphatase 92 U/L (35-105); Anion Gap 15.3 (5-19); Aspartate Amino Transferase 17 U/L (0-32); Blood Urea Nitrogen 14 mg/dL (6-20); CRP High Sensitivity Cardiac 0.580 mg/dL (0.0-0.3); Calcium 9.8 mg/dL (8.5-10.5); Carbon Dioxide 25 mmol/L (22-29); Chloride 105 mmol/L (98-107); Globulin 3.6 g/dL (1.3-4.6); Glucose 118 mg/dL (65-115); Lipase 33 U/L (13-60); Magnesium 2.0 mg/dL (1.7-2.3); Osmolality Calculated 294 mOsm/kg (285-295); Potassium 4.3 mmol/L (3.5-5.1); Sodium 141 mmol/L (136-145); Total Protein 7.6 g/dL (6.6-8.7)
[2025-06-01 02:25] LABS: Add Urine Microscopic? YES
[2025-06-01 02:37] LABS: Lactic Sepsis W/Reflex 1.9 mmol/L (0.5-2.2)
[2025-06-01] MEDS: iohexol 350 mg/mL 500 mL Btl (per mL) IV (03:33)
[2025-06-01] MEDS: metoclopramide 5 mg/mL SDV 2 mL 10 MG IVP (04:17)
[2025-06-01] MEDS: alum-mag-hydroxide-sime 30 mL UDC PO (04:17)
--- NOTE | 2025-06-01 04:29 | XRR_ITS ---
PROCEDURE INFORMATION: Exam: XR Chest Exam date and time: 06/01/2025 4:35 AM Age: 60 years old Clinical indication: Pain; Intercostal; Additional info: R lower rib cage pain TECHNIQUE: Imaging protocol: Radiologic exam of the chest. Views: 1 view. COMPARISON: CR XR chest 1V portable [id number] 12/20/2023 6:32 PM FINDINGS: Lungs: Unremarkable. No consolidation. Pleural spaces: Unremarkable. No pleural effusion. No pneumothorax. Heart/Mediastinum: Unremarkable. No cardiomegaly. Bones/joints: Unremarkable. XR/XR chest 1V portable [id number] IMPRESSION: No acute findings.
--- NOTE | 2025-06-01 04:59 | ED_ITS ---
HPI - Abdominal Pain 2 General: Chief Complaint: Abdominal Pain Stated Complaint: ABD Pain Time Seen by Provider: 06/01/25 01:28 History of Present Illness: Patient is a 60yo female with a history of GERD, essential tremor, kidney stones who presents with a one-day history of nausea and diffuse abdominal pain. She denies vomiting and fever. No prior abdominal surgeries, last bowel movement was yesterday. She has not experienced urinary symptoms. She has had symptomatic cholelithiasis prior, denies any specific right upper quadrant pain at this time, no recent heavy alcohol or NSAID usage. S he reports feeling flushed but denies any diaphoresis, chills, chest pains, shortness of breath, recent sick contacts. Associated Symptoms: Reports nausea Related Data Home Medications ?Medication ?Instructions ?Recorded ?Confirmed esomeprazole magnesium 20 mg 20 mg PO DAILY 04/04/20 0 12/14/24 capsule,delayed release (Nexium 24HR) ondansetron HCl 8 mg tablet 8 mg PO Q8H 12/14/2412/14 polyethylene glycol 400 0.25 % eye drp ophthalmic (eye ) 12/14/24 12/14/24 gel drops (Blink Gel Tears) vitamin B comp and C no.3 15 mg-10 1 cap PO DAILY 09/0812/14/24 mg-50 mg-5 mg-300 mg capsule (B Complex Plus Vitamin C) vitamin D3 800 unit-folic acid 1 cap PO 12/14/2412/14 mg-collagen,hydrolys 300 mg capsule Previous Rx's ?Medication ?Instructions ?Recorded primidone 50 mg tablet See Rx Instructions .Route 1 08/02/23 .COMPLEX #360 tabs levocetirizine 5 mg tablet (Xyzal) 5 mg PO DAILY #90 t abs 12/14/24 prednisone 20 mg tablet 40 mg (2 x 20 mg) PO DAILY 5 days 12/14/24 #10 tabs propranolol 60 mg tablet See Rx Instructions .Route 0 01/12/25 .COMPLEX #180 tabs COVID vac 25-26(12up)(Pfi)(PF) 30 0.3 ml IM ONCE #0.3 mL 04/26/25 mcg/0.3 mL IM syringe cephalexin 500 mg capsule 500 mg PO Q6H #20 caps 06/01 ondansetron 4 mg disintegrating 4 mg PO Q8H #20 tabs 1 08/01/24 tablet Allergies Allergy/AdvReac Type Severity Reaction Status Date / Time No Known Allergies Allergy Verified 12/14/24 12:47 Review of Systems 2 General: Reports: 10 or more systems reviewed and unremarkable except in HPI and below Const: Reports: change in appetite and fatigue GI: Reports: abdominal pain and nausea PFSH ED 2 PFSH: Medical History (Updated 06/01/25 @ 05:19 by Paxton Pugh DO) GERD (gastroesophageal reflux disease) Obesity (BMI 35.0-39.9 without comorbidity) Neuropathy Meniere disease of left ear Urolithiasis Renal colic on right side History of pilonidal cyst Hydronephrosis of right kidney Essential tremor Surgical History History of tonsillectomy Family History (Updated 12/14/24 @ 12:57 by Fabian Hutson LPN) Grandfather No problems noted. Mother Hypertension Heart disease Dementia Brother Morquio A syndrome Father Essential tremor Parkinson disease Other Cancer Social History Smoking and tobacco/nicotine status: never used tobacco/nicotine Alcohol intake: never Substance/Drug Use: never Adopted: No Caregiver/support person: No Lives independently: No Household members: spouse Marital status: Current occupational status: employed Physical Exam 2 Narrative: EXAM NARRATIVE: Mildly fatigued and distress secondary to pain but vital stable, afebrile. Abdomen mildly distended, diffuse right and lower abdominal tenderness, negative McBurney and Verma sign, not peritonitic, no overlying skin changes, decreased bowel sounds, no CVA tenderness. Breathing comfortably on room air, saturating well, normal sinus rhythm, no leg swelling, 2+ pulses throughout, mildly tacky mucous membranes. GCS 15. Course 2 Vital Signs: Vital signs: Vital Signs Temperature 97.5 F L 06/01/25 00:21 Pulse Rate 69 06/01/25 05:00 Respiratory Rate 22 H 06/01/25 02:08 Blood Pressure 185/106 06/01/25 05:00 Pulse Oximetry 100 06/01/25 05:00 Oxygen Delivery Me thod Room Air 06/01/25 05:00 MDM - Abdominal Pain Medical Decision Making -ddx: Cholelithiasis, pancreatitis, hepatitis, enteritis, dehydration, electrolyte abnormality, nephrolithiasis, pyelonephritis, cystitis, intra- abdominal abscess - Patient with abrupt 1 day of symptoms, diffuse abdominal tenderness, no prior abdominal surgeries, not septic but mildly distressed appearing, will give fluids, pain and nausea medications, get abdominal labs and CT scan and reevaluate. - Patient with negative CT abdomen pelvis for any acute intra-abdominal pathology, did have some gallstones but nothing impacted, no surrounding edema or ductal dilation concerning for cholecystitis other biliary tract pathology, no pancreas or liver inflammation. Had diverticulosis but no concerns for diverticulitis. UA moderately dirty. Patient only with mild symptom relief after initial medications, given a GI cocktail as well. Chest x-ray with no effusions, cardiomegaly, infiltrates, pneumothorax. She was moderately improved after GI cocktail, was able to tolerate p.o., started on antibiotics for her possible UTI and discharged in stable condition with supportive care recommendations for a bland diet, antibiotics for UTI, antiemetics and to rest at home, follow-up with PCP within a week and strict return precautions given, at bedside. Lab Data 06/01/25 02:06 06/01/25 01:51 Labs/Radiology: Radiology Impressions Abdomen/Pelvis CT 06/01/25 01:48 IMPRESSION: 1. Cholelithiasis. 2. Diverticulosis, without acute diverticulitis. No small bowel obstruction. No free air. Chest X-Ray 06/01/25 04:29 IMPRESSION: No acute findings. Laboratory Results WBC 9.32 10^3/uL (3.29-11.43) 06/01/25 02:06 Corrected WBC Cancelled 06/01/25 01:51 RBC 4.37 10^6/uL (3.85-5.65) 06/01/25 02:06 Hgb 14.10 g/dL (11.27-16.99) 06/01/25 02:06 Hct 41.9 % (36-47) 06/01/25 02:06 MCV 95.9 fl (85-98) 06/01/25 02:06 MCH 32.3 pg (27-33) 06/01/25 02:06 MCHC 33.7 g/dL (30-55) 06/01/25 02:06 RDW 12.9 % (12.1-15.1) 06/01/25 02:06 Plt Count 255 10^3/cmm (157-399) 06/01/25 02:06 MPV 10.7 fL (7.4-10.4) H 06/01/25 02:06 Gran % Cancelled 06/01/25 01:51 Neut % (Auto) 68.4 % 06/01/25 02:06 Lymph % (Auto) 22.6 % 06/01/25 02:06 Petroleum % (Auto) 5.6 % 06/01/25 02:06 Eos % (Auto) 2.3 % 06/01/25 02:06 Baso % (Auto) 0.9 % 06/01/25 02:06 Neut # (Auto) 6.38 10^3/uL (1.8-7.7) 06/01/25 02:06 Lymph # (Auto) 2.1 10^3/uL (0.8-4.8) 06/01/25 02:06 Petroleum # (Auto) 0.5 10^3/uL (0.2-0.9) 06/01/25 02:06 Eos # (Auto) 0.2 10^3/uL (0.0-0.8) 06/01/25 02:06 Baso # (Auto) 0.1 10^3/uL (0.0-0.1) 06/01/25 02:06 Absolute Gran (auto) Cancelled 06/01/25 01:51 Nucleated RBC % (auto) 0 % 06/01/25 02:06 Nucleated RBCs # 0.0 /100WBC 06/01/25 02:06 Sodium 141 mmol/L (136-145) 06/01/25 01:51 Potassium 4.3 mmol/L (3.5-5.1) 06/01/25 01:51 Chloride 105 mmol/L (98-107) 06/01/25 01:51 Carbon Dioxide 25 mmol/L (22-29) 06/01/25 01:51 Anion Gap 15.3 (5-19) 06/01/25 01:51 BUN 14 mg/dL (6-20) 06/01/25 01:51 Creatinine 0.7 mg/dL (0.5-0.9) 06/01/25 01:51 GFR Calculation 85.6 mL/min (90-130) L 06/01/25 01:51 Glucose 118 mg/dL (65-115) H 06/01/25 01:51 Calculated Osmolality 294 mOsm/kg (285-295) 06/01/25 01:51 Lactic Acid 1.9 mmol/L (0.5-2.2) 06/01/25 02:10 Calcium 9.8 mg/dL (8.5-10.5) 06/01/25 01:51 Phosphorus 3.4 mg/dL (2.5-4.5) 06/01/25 01:51 Magnesium 2.0 mg/dL (1.7-2.3) 06/01/25 01:51 Total Bilirubin 0.3 mg/dL (0.15-1.2) 06/01/25 01:51 AST 17 U/L (0-32) 06/01/25 01:51 ALT 14 U/L (0-33) 06/01/25 01:51 Alkaline Phosphatase 92 U/L (35-105) 06/01/25 01:51 C-React Prot High Sens 0.580 mg/dL (0.0-0.3) H 06/01/25 01:51 Total Protein 7.6 g/dL (6.6-8.7) 06/01/25 01:51 Albumin 4.0 g/dL (3.5-5.2) 06/01/25 01:51 Globulin 3.6 g/dL (1.3-4.6) 06/01/25 01:51 Lipase 33 U/L (13-60) 06/01/25 01:51 Urine Color Yellow (Yellow) 06/01/25 02:10 Urine Appearance Clear (CLEAR) 06/01/25 02:10 Urine pH 7.0 (5-7) 06/01/25 02:10 Ur Specific [place] 1.025 (1.005-1.030) 06/01/25 02:10 Urine Protein Trace (Negative) A 06/01/25 02:10 Urine Glucose (UA) Negative (Normal) 06/01/25 02:10 Urine Ketones Trace (Negative) 06/01/25 02:10 Urine Blood Negative (Negative) 06/01/25 02:10 Urine Nitrate Negative (Negative) 06/01/25 02:10 Urine Bilirubin Negative (Negative) 06/01/25 02:10 Urine Urobilinogen 1.0 mg/dL (Negative) 06/01/25 02:10 Ur Leukocyte Esterase 1+ (Negative) A 06/01/25 02:10 Urine RBC 0-2 /hpf (0-2) 06/01/25 02:10 Urine WBC 21-50 /hpf (0-5) H 06/01/25 02:10 Ur Squamous Epith Cells 0-5 /hpf (0-5) 06/01/25 02:10 Amorphous Sediment Not Reportable 06/01/25 02:10 Urine Bacteria None seen /hpf (NONE) 06/01/25 02:10 Hyaline Casts 1.21 /lpf 06/01/25 02:10 All radiology interpretation(s) finalized by discharge Discharge Plan Discharge Patient Disposition: Home Clinical Impression: UTI (urinary tract infection), Cholelithiasis Condition: Stable Prescriptions: New cephalexin 500 mg capsule 500 mg PO Q6H Qty: 20 0RF ondansetron 4 mg tablet,disintegrating 4 mg PO Q8H Qty: 20 0RF No Action esomeprazole magnesium [Nexium 24HR] 20 mg capsule,delayed release(DR/EC) 20 mg PO DAILY primidone 50 mg tablet See Rx Instructions .ROUTE .COMPLEX Qty: 360 3RF Dose Instruction: TAKE TWO TABLETS BY MOUTH TWICE DAILY Rx Instructions: TAKE TWO TABLETS BY MOUTH TWICE DAILY ondansetron HCl 8 mg tablet 8 mg PO Q8H B Complex Plus Vitamin C 05-84-80-5-300 mg capsule 1 cap PO DAILY Rx Instructions: give with food (meal/snack) D3-folic acid-collagen(bovine) 800 unit-1 mg- 300 mg capsule PO Blink Gel Tears 0.25 % drops,gel ophthalmic (eye) levocetirizine [Xyzal] 5 mg tablet 5 mg PO DAILY Qty: 90 1RF prednisone 20 mg tablet 40 mg PO DAILY 5 Days Qty: 10 0RF propranolol 60 mg tablet See Rx Instructions .ROUTE .COMPLEX Qty: 180 3RF Dose Instruction: TAKE 1 TABLET BY MOUTH THREE TIMES DAILY Rx Instructions: TAKE 1 TABLET BY MOUTH THREE TIMES DAILY COVID vac 25-26(12up)(Pfi)(PF) 30 mcg/0.3 mL syringe 0.3 ml IM ONCE Qty: 0.3 0RF Discharge Orders: Discharge ED (Routine); Ordered 06/01/25 Ordered By: Paxton Pugh Referrals: Philipp Pierce MD [Primary Care Provider, [facility]] Discharge Diet: Advance as tolerated Discharge Activity: Resume usual activity Patient Instructions: Abdominal Pain (ED), Opioid Safety, Pain Management, Patient Portal & Philipp Instructions Activity Restrictions/Additional Instructions: You were seen for your abdominal pain and vomiting, you were evaluated with a CT scan and laboratory studies that were suggestive of a urinary tract infection, gallstones and a viral stomach bug acting together to cause your symptoms, you improved moderately with fluids, nausea and pain medication and were deemed stable to be discharged home. You were given a first dose of an antibiotic for UTI, take the remainder, Keflex 500 mg 4 times a day for the next 5 days. Use the Zofran 4 mg every 8 hours as needed for nausea. For pain, alternate ibuprofen 40 mg and Tylenol 650 mg every 4 hours as needed. Use 1/2-1 scoop of MiraLAX a day to promote regular bowel movements to see if this helps your abdominal pain as well. Start with a bland diet and advance as your stomach allows. Make an appointment with your primary care physician in a week's time to reevaluate the status of your symptoms. Return to the ED with severe worsening of your pain or vomiting, fevers that do not improve with Tylenol, inability to eat or drink, breathing difficulties, any other emergent concerns. Print Language: Latvian Coding Level of Care Code ED Lever Miller for Albaro Hernadez
== END 2025-06-01 06:06 | disposition home or self-care (01) ==
PROVIDERS: Emergency Provider Student in an Organized Health Care Education/Training Program; PCP Family Medicine
DX: N39.0 Urinary tract infection, site not specified (principal); K80.20 Calculus of gallbladder without cholecystitis without obstruction
CPT/HCPCS: 36415; 71045; 74177; 80053; 81001; 83605; 83690; 83735; 84100; 85025; 86141; 87086; 93005; 96361; 96374; 96375; 99285; J2270; J2405; J2765; J3490; J7030; J9999